=== PATIENT | male | born 1965 | race Caucasian/White ===

== ENCOUNTER → 2016-10-08 | Outpatient (CLI) | payer OTHER ==
[~2016-10-08] MED LIST: ASPI81TA28 PO; ATOR-26 PO; ATV/1 PO; CARV3.12 PO; CFT250 PO; CLOP1TAB15 PO; CRFL PO; FAMO20TA9 PO; FLV1 PO; LPT/40 PO; METO-217 PO; METO50TA16 PO; NRN/600 PO; NRV/5 PO; NTRGSL/4 UT; OMEG10007 PO; POLY335019 PO; POLY335040 PO; PRT40 PO; RAMI2.5C PO; SERT100T PO; THM100 PO; ZOLP5TAB PO
[2016-10-08 13:28] LABS: ALT/SGPT 44 U/L (12-78); AST/SGOT 22 U/L (15-37); BLOOD UREA NITROGEN 16 mg/dl (7-18); BUN/CREATININE RATIO 14.3 (10-20); CALCIUM 8.8 mg/dl (8.5-10.1); CARBON DIOXIDE 28 mmol/L (21-32); CHLORIDE 106 mmol/L (98-107); GLUCOSE 124 mg/dl (70-99); POTASSIUM 4.2 mmol/L (3.5-5.1); SODIUM 141 mmol/L (136-145)
[2016-10-08 13:31] LABS: CHOLESTEROL 151 mg/dl (0-200); CHOLESTEROL/HDL RATIO 2.8; HDL CHOLESTEROL 54 mg/dl; LDL CHOLESTEROL CALCULATED 68 mg/dl; TRIGLYCERIDES 147 mg/dl (0-150); VERY LOW DENSITY LIPOPROT CALC 29 mg/dl
== END | disposition home or self-care (01) ==
LOC: C.LABMFLN 08:33
PROVIDERS: ATTEND Family Medicine
DX: E78.5 Hyperlipidemia, unspecified (principal); I10 Essential (primary) hypertension; I25.10 Atherosclerotic heart disease of native coronary artery without angina pectoris; R73.03 Prediabetes

== ENCOUNTER 2017-02-20 08:20 | Observation (INO) | payer OTHER ==
[2017-02-20] VITALS (9 sets, daily range): BP systolic 127–162; BP diastolic 73–102; PULSE 67–75; TEMP 36.5–36.8; O2SAT 91–96; Ht 188 cm; Wt 116.6 kg
[~2017-02-20] VITALS: Ht 188 cm; Wt 116.6 kg
[~2017-02-20 08:20] MED LIST changes: -ASPI81TA28 PO; -ATOR-26 PO; -ATV/1 PO; -CFT250 PO; -CRFL PO; -FAMO20TA9 PO; -FLV1 PO; -METO-217 PO; -METO50TA16 PO; -NRV/5 PO; -NTRGSL/4 UT; -POLY335019 PO; -PRT40 PO; -RAMI2.5C PO; -SERT100T PO; -THM100 PO
[2017-02-20] MEDS ORDERED: POLY335019 PO (08:34)
--- NOTE | 2017-02-20 09:07 | DIAGNOSTIC IMAGING REPORT ---
SINGLE VIEW CHEST CLINICAL HISTORY: Atypical chest pain. FINDINGS: An AP, portable, upright chest radiograph is compared to study dated 12/27/2012. The examination is degraded by portable technique and patient rotation. The heart is top normal for projection. The pulmonary vasculature is noncongested. Scattered calcified granulomas are suggested. No airspace consolidation or pleural effusion is identified. No pneumothorax is seen. The bony thorax is grossly intact. IMPRESSION: No acute cardiopulmonary abnormality. Electronically signed by: Hunter Osorio M.D. 02/20/2017 9:06 AM Dictated Date/Time: 02/20/2017 9:04 AM
[2017-02-20] MEDS ORDERED: CFT250 PO (09:12)
[2017-02-20] MEDS ORDERED: METO50TA16 PO (09:12)
[2017-02-20] MEDS ORDERED: ATOR-26 PO (09:12)
[2017-02-20 09:14] LABS: BASO % 0.9 %; BASO ABS # 0.05 K/uL (0-0.2); COMPLETE YES; EOS % 7.2 %; HEMATOCRIT 41.3 % (42-52); IG% 0.2 %; LYMPH % 17.3 %; LYMPH ABS # 0.96 K/uL (1.2-3.4); MEAN CELL VOLUME 89.8 fL (80-100); MEAN CORPUSCULAR HEMOGLOBIN 31.5 pg (25-34); MEAN CORPUSCULAR HGB CONC 35.1 g/dl (32-36); MEAN PLATELET VOLUME 10.7 fL (7.4-10.4); MONO % 7.7 %; NEUT % 66.7 %; PLATELET COUNT 108 K/uL (130-400); WHITE BLOOD COUNT 5.56 K/uL (4.8-10.8)
[2017-02-20 09:20] LABS: BUN/CREATININE RATIO 20.2 (10-20); CALCIUM 8.3 mg/dl (8.5-10.1); CREATININE 1.1 mg/dl (0.60-1.40); PROTHROMBIN TIME (PATIENT) 11.1 SECONDS (9.0-12.0)
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
[2017-02-20] MEDS ORDERED: ENOXAPARIN 40 MG/0.4 ML SYR SC SCH (11:15)
[2017-02-20] MEDS ORDERED: ACETAMINOPHEN 325 MG TAB PO PRN (11:15)
[2017-02-20] MEDS ORDERED: NITROGLYCERIN 0.4 MG SL PER TAB CHARGE SL PRN (11:15)
[2017-02-20] MEDS ORDERED: NITROGLYCERIN 0.4 MG SL PER TAB CHARGE UT SCH (11:15)
[2017-02-20] MEDS ORDERED: ALUMINUM/MAGNESIUM/SIMETH (MAALOX MAX) 30 ML UDC PO PRN (11:15)
[2017-02-20] MEDS ORDERED: MAGNESIUM HYDROXIDE SUSP 30 ML UDC PO PRN (11:15)
[2017-02-20] MEDS ORDERED: NITROGLYCERIN OINT 2% 1GM PACKET EXT SCH (11:45)
[2017-02-20] MEDS ORDERED: HEPARIN 25000 UNIT/500 ML D5W ONE (12:02)
[2017-02-20] MEDS ORDERED: HEPARIN SOD 5000 UNIT/0.5 ML CARP ONE (12:03)
[2017-02-20] MEDS ORDERED: ALUMINUM/MAGNESIUM SUSP 30 ML UDC PO STA ×2 (12:04→17:15)
[2017-02-20] MEDS ORDERED: LIDOCAINE HCL 2% VISC SOLN 20 ML UDC PO ONE ×2 (12:15→17:30)
[2017-02-20] MEDS ORDERED: ASPI81TA28 PO (12:18)
[2017-02-20] MEDS ORDERED: IV FLUIDS COMPLETED PRN (12:45)
--- NOTE | 2017-02-20 13:12 | History and Physical ---
History & Physical Date of Service Feb 20, 2017. History & Physical obs #[id number]
[2017-02-20] MEDS: METOPROLOL TARTRATE 25 MG TAB PO SCH ×3 (13:29→20:48)
[2017-02-20] MEDS ORDERED: THIAMINE HCL 100 MG TAB PO STA (13:29)
[2017-02-20] MEDS ORDERED: LORAZEPAM 1 MG TAB PO PRN (13:30)
--- NOTE | 2017-02-20 13:49 | HISTORY & PHYSICAL EXAMINATION ---
DATE OF ADMISSION: 02/20/2017 CHIEF COMPLAINT: Chest pain. HISTORY OF PRESENT ILLNESS: The patient is a very pleasant 51-year-old male who woke up this morning about 6:30 with chest pain that is kind of a pressure, about 4/10, substernal, it goes up to his neck and most ominously he notes that it feels very similar to whenever he had an OR in 2003. He took 2 nitro with no relief. In the ambulance, he was given more nitro and it improved and now his pain is a 1/10, although interestingly right after lunch he noticed that it came back a little bit more and was back to about 3/10. He has had some diaphoresis as well. He has not had vomiting, diarrhea, cough, shortness of breath, presyncope or any other notable symptoms. He does have a little bit of rhinitis because he is being treated for sinusitis. REVIEW OF SYSTEMS: Otherwise negative, except for as above. PAST MEDICAL HISTORY: Includes coronary artery disease with stenting, I believe x4, impaired glucose tolerance, hypertension, hyperlipidemia, GERD. MEDICATIONS: As noted in EMR are recently cefuroxime for sinusitis, aspirin, amlodipine, atorvastatin, famotidine, lorazepam p.r.n. anxiety, metoprolol, nitroglycerin p.r.n. angina, MiraLax, ramipril and Zoloft. PAST SURGICAL HISTORY: Includes back surgeries and cath and stenting. SOCIAL HISTORY: He has about a 15-20 pack year smoking history. He has predominantly quit, however occasionally he will smoke whenever he is drinking. He does drink beer 3-4 times a week. Unfortunately, typically about 10 beers whenever he has any. FAMILY HISTORY: His dad had an OR at 42. Sister he believes an OR fairly young as well. ALLERGIES: No known drug allergies. PHYSICAL EXAMINATION: VITAL SIGNS: Temp 36.6, pulse 72, respiratory rate 17, blood pressure 141/77, 97% on room air. GENERAL: He is awake, alert, oriented x3, pleasant, in no acute distress. HEAD, EYES, EARS, NOSE, AND THROAT: Normocephalic, atraumatic. Mucous membranes are moist. CARDIOVASCULAR: Regular without rubs, murmurs, or gallops. LUNGS: Clear to auscultation bilaterally. No rales, rhonchi, or wheezes with good effort. ABDOMEN: Soft, nondistended. He does have epigastric tenderness that provokes a little bit of nausea and he is burping during the interview and exam to a degree. No guarding, no rebound, no rigidity. EXTREMITIES: Without cyanosis, clubbing or edema. No calf tenderness. SKIN: Shows no rashes, no pallor or icterus. He is mildly diaphoretic. NEUROLOGIC: Shows cranial nerves II through XII to be grossly intact. Gross motor and sensory are intact. MUSCULOSKELETAL EXAMINATION: Yields no gross gross lesions. MENTAL STATUS: Shows good recent and remote recall. Normal mood and affect. Good judgment and insight. LABORATORY AND DIAGNOSTICS: CBC shows a white count of 5.56, hemoglobin 14.5, platelets 108. Previously his platelets have been low to low normal. Complete metabolic panel with sodium 139, potassium 4, chloride 106, CO2 27, BUN 22, creatinine 1.1, calcium 8.3, glucose 114, total bilirubin 0.5 with a direct of 0.1, AST 27, ALT 46, alkaline phosphatase 106, troponin of less than 0.030. BNP of 11. Total protein 7.2, lipase 228. Hep C screen is negative. His PT is 11.1, PTT of 24.7. Chest x-ray shows no cardiopulmonary abnormality. His EKG is sinus rhythm. ASSESSMENT AND PLAN: 1. Chest pain. The main differential here being unstable angina versus GERD. Certainly his worsening after eating his burping and his epigastric tenderness favor GERD as do his normal EKG and normal first troponin. That said with his rather ominous cardiac history and the fact that he notes this feels almost exactly like his previous angina this needs to be managed as unstable angina until proven otherwise. In that respect we will have him on 2 liters of oxygen, start him on heparin drip, increase his beta effie. He is already on antiplatelets. Will consult cardiology to give consideration to cath. Certainly he does not show any indication for emergent cath, but should his symptoms fail to improve after the situation has been more clearly defined he may need follow-up cath especially given that he just had a negative stress test about 3 weeks ago. He will need morphine p.r.n., his MACIE inhibitor and nitrates p.r.n. He is already on a full dose statin. We will follow serial cardiac enzymes and certainly should he show any elevation of troponin or any EKG changes he will need to go to cath. If everything is negative and he improves with the GI cocktail (see below) then it would almost certainly be GERD related; however, if he does not improve with GI cocktail, but he has an ongoing negative troponin, negative EKG, that will be a little bit more difficult to discern and either would warrant cath or very close monitoring. 2. Indigestion or gastroesophageal reflux disease. He does appear to have indigestion and GERD. Right now he is burping, he has some epigastric tenderness. He does have a history of GERD given that he takes Pepcid routinely. Will give him Maalox and viscous lidocaine now to look for diagnostic/therapeutic trial. Continue his Pepcid and follow closely. 3. Recent sinusitis. Will finish out his Ceftin. 4. Known coronary disease. Continue his home meds with the escalations as above noted. 5. Hypertension. Continue his home meds depending on his degree of control, possibly at discharge we will need to increase his ramipril. 6. Alcohol abuse. Follow for any signs or symptoms of withdrawal. 7. Hyperlipidemia. Continue his atorvastatin. 8. Deep venous thrombosis prophylaxis. Currently will be anticoagulated on heparin drip.
[2017-02-20] MEDS: LORAZEPAM 1 MG TAB PO PRN (13:54)
[2017-02-20] MEDS ORDERED: NTRGSL/4 UT (14:51)
[2017-02-20] MEDS ORDERED: RAMI2.5C PO (14:51)
[2017-02-20] MEDS ORDERED: SERT100T PO (14:51)
[2017-02-20] MEDS ORDERED: FAMO20TA9 PO (14:51)
--- NOTE | 2017-02-20 15:48 | Cardiology Consultation ---
Cardiology Consultation Date of Consultation: Feb 20, 2017. Attending Physician: Jeffrey Hong MD Reason for Consultation: Concern for chest pain on unstable angina. Pt evaluation today including: conversation w/ patient, conversation w/ family , physical exam, chart review, lab review, review of studies Past Medical/Surgical History This note is by PG1 Tobacco Stripping Machine Operator. For official recommendation, please see attending Dr. Hal SYED addendum/attestation. Mr. Quiros is a 51 year old male admitted for chest pain. Reason for consultation is concern for chest pain on unstable angina. Mr. Quiros has a past medical history significant for angina and 2 stents placed in 2003, and 2 additional placed in 2004 or 2005. Pt did not have his stent card with him, but recalls that it was for his left anterior descending artery. Pt states that he woke up this morning around 6:30, ate his breakfast, and while driving on his way to work began to feel a pressure and burning in the midsternal chest. Pt denies the pain radiating anywhere, and says that he felt nausea and sweating when it happened. He said the pain comes and it goes, and isn't associated with position or exertion. When he first started feeling it, it was 1/10, but now in the hospital he says when it comes on it is 7/10. He says when he swallows his water or coke that it feels like a spasm "down there" but that he also feels the pain at other times as well. Pt denies vomiting, dyspnea, radiation, palpitations nor hemoptysis, cough, orthopnea, nor PND. Pt states that the Nitroglycerin he has been given has helped but that he doesn' t want to take anymore because of the headache he has with it. Pt states that the last time he had angina requiring stents, his presentation was atypical and that not until his 3rd cardiac enzyme did it show abnormality. is in room with pt and states that they just got back from vacation in the [place]. 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 FH is positive for pt's father passing away from a heart attack at age 42. Pt's mother had cardiac stents placed in her late 60s. Social History Smoking Status: Former Smoker History of Alcohol Use: Yes (8 beers every other day.) Review of Systems Constitutional: + see HPI Respiratory: No cough, No sputum, No shortness of breath Cardiac: + chest pain, No orthopnea, No PND, No edema, No claudication, No palpitations Abdomen: + nausea, No pain, No vomiting, No diarrhea, No constipation, No GI bleeding Male : No dysuria, No hematuria Allergies Coded Allergies: No Known Allergies (Unverified , 02/20/17) Medications Current Inpatient Medications Medications (Trade) Dose Ordered Sig/Wilfredo Route Start Time Stop Time Status Last Admin Dose Admin Acetaminophen (Tylenol Tab) 650 mg Q4H PRN PO 02/20/17 11:15 03/22/17 11:14 Al Hydrox/Mg Hydrox/Simethicone (Maalox Max Susp) 15 ml Q4H PRN PO 02/20/17 11:15 03/22/17 11:14 02/20/17 13:32 15 ML Magnesium Hydroxide (Milk Of Magnesia Susp) 30 ml Q12H PRN PO 02/20/17 11:15 03/22/17 11:14 Ondansetron HCl (Zofran Inj) 4 mg Q6H PRN IV 02/20/17 11:15 03/22/17 11:14 Amlodipine Besylate (Norvasc Tab) 5 mg DAILY PO 02/21/17 09:00 03/23/17 08:59 Aspirin (Ecotrin Tab) 81 mg QPM PO 02/20/17 21:00 03/22/17 20:59 Atorvastatin Calcium (Lipitor Tab) 80 mg DAILY PO 02/21/17 09:00 03/23/17 08:59 Cefuroxime Axetil (Ceftin Tab) 250 mg BID PO 02/20/17 21:00 02/22/17 20:59 Famotidine (Pepcid Tab) 20 mg BID PO 02/20/17 21:00 03/22/17 20:59 Lorazepam (Ativan Tab) 1 mg Q6H PRN PO 02/20/17 11:15 03/22/17 11:14 02/20/17 13:54 1 MG Nitroglycerin (Nitrostat Tab) 0.4 mg PRN UT 02/20/17 11:15 03/22/17 11:14 Sertraline HCl (Zoloft Tab) 200 mg DAILY PO 02/21/17 09:00 03/23/17 08:59 Polyethylene (Miralax Powder Packet) 17 gm DAILY PO 02/21/17 09:00 03/23/17 08:59 Enalapril Maleate (Vasotec Tab) 10 mg QPM PO 02/20/17 21:00 03/22/17 20:59 Metoprolol Tartrate (Lopressor Tab) 12.5 mg QID PO 02/20/17 13:00 03/23/17 08:59 02/20/17 13:29 12.5 MG Morphine Sulfate (MoRPHine SULFATE INJ) 2 mg Q30M PRN IV 02/20/17 12:00 03/06/17 11:59 Miscellaneous (Iv Fluids Completed) 1 ea PRN PRN N/A 02/20/17 12:45 02/20/18 12:44 Heparin Sodium/ Dextrose 500 ml @ 34 mls/hr [id number] PRN IV 02/20/17 13:15 03/22/17 13:14 Lorazepam (Ativan Tab) 1 mg ONE PRN PO 02/20/17 13:30 Folic Acid (Folvite Tab) 1 mg QAM PO 02/21/17 09:00 03/23/17 08:59 Thiamine HCl (Vitamin B-1 Tab) 100 mg DAILY PO 02/21/17 09:00 03/23/17 08:59 Nitroglycerin (Nitroglycerin 2% Oint) 0.5 inch Q6H EXT 02/20/17 16:00 03/22/17 15:59 Physical Exam Vital Signs Past 12 Hours Date Time Temp Pulse Resp B/P (MAP) Pulse Ox O2 Delivery O2 Flow Rate FiO2 02/20/17 14:24 73 16 127/73 (91) 93 Room Air 02/20/17 13:04 94 Room Air 02/20/17 12:58 36.5 75 16 153/84 (107) 94 02/20/17 12:25 71 12 138/85 98 Room Air 02/20/17 11:40 70 18 145/102 97 Room Air 02/20/17 10:13 96 Room Air 02/20/17 09:43 95 Room Air 02/20/17 09:43 96 Room Air 02/20/17 09:43 71 20 139/84 96 Room Air 02/20/17 08:43 78 02/20/17 08:26 36.6 72 17 141/77 96 Room Air 02/20/17 08:26 97 Room Air Constitutional: General Apperance: heathly-appearing, well-nourished, overweight Level of Distress: mild distress Head: normocephalic, atraumatic Lungs: Respiratory effort: no dyspnea, good air movement Auscultation: breath sounds normal, no wheezing, no rales/crackles, no rhonchi, pertinent finding (+pain on palpation to midsternum and xiphoid process.) Cardiovascular: Apical Impulse: not displaced Heart Auscultation: RRR, no murmurs, no rubs, no gallops Peripheral Pulses: Bruits: none appreciated Carotid Pulse: normal on the left, normal on the right Radial Pulse: normal on the left, normal on the right Dorsalis Pedis Pulse: normal on the left, normal on the right Abdomen: Bowel Sounds: normal Inspection & Palpation: soft, non-distended, no tenderness, guarding & rebound, no CVA tenderness, pertinent finding (+pain on palpation to midsternum and xiphoid process; pain when sitting up. ) Liver: non-tender Extremities: no cyanosis, no edema, no varicosities Neurologic: Cranial Nerves: grossly intact Sensation: grossly intact Data Laboratory Results: Last 24 Hours Test 02/20/17 08:40 02/20/17 08:44 02/20/17 08:53 Hepatitis C Antibody Screen NEG White Blood Count 5.56 K/uL Red Blood Count 4.60 M/uL Hemoglobin 14.5 g/dL Hematocrit 41.3 % Mean Corpuscular Volume 89.8 fL Mean Corpuscular Hemoglobin 31.5 pg Mean Corpuscular Hemoglobin Concent 35.1 g/dl Platelet Count 108 K/uL Mean Platelet Volume 10.7 fL Neutrophils (%) (Auto) 66.7 % Lymphocytes (%) (Auto) 17.3 % Monocytes (%) (Auto) 7.7 % Eosinophils (%) (Auto) 7.2 % Basophils (%) (Auto) 0.9 % Neutrophils # (Auto) 3.71 K/uL Lymphocytes # (Auto) 0.96 K/uL Monocytes # (Auto) 0.43 K/uL Eosinophils # (Auto) 0.40 K/uL Basophils # (Auto) 0.05 K/uL RDW Standard Deviation 42.9 fL RDW Coefficient of Variation 13.1 % Immature Granulocyte % (Auto) 0.2 % Immature Granulocyte # (Auto) 0.01 K/uL Prothrombin Time 11.1 SECONDS Prothromb Time International Ratio 1.0 Activated Partial Thromboplast Time 24.7 SECONDS Partial Thromboplastin Ratio 1.0 Sodium Level 139 mmol/L Potassium Level 4.0 mmol/L Chloride Level 106 mmol/L Carbon Dioxide Level 27 mmol/L Anion Gap 6.0 mmol/L Blood Urea Nitrogen 22 mg/dl Creatinine 1.10 mg/dl Est Creatinine Clear Calc Drug Dose 106.3 ml/min Estimated GFR () 89.0 Estimated GFR (Non- 76.8 BUN/Creatinine Ratio 20.2 Random Glucose 114 mg/dl Calcium Level 8.3 mg/dl Total Bilirubin 0.5 mg/dl Direct Bilirubin 0.1 mg/dl Aspartate Amino Transf (AST/SGOT) 27 U/L Alanine Aminotransferase (ALT/SGPT) 46 U/L Alkaline Phosphatase 106 U/L Pro-B-Type Natriuretic Peptide 11 pg/ml Total Protein 7.2 gm/dl Albumin 3.7 gm/dl Lipase 228 U/L Bedside Troponin I < 0.030 ng/ml Imaging: EKG: Telemetry reviewed: Assessment & Plan This note is by PG1 Tobacco Stripping Machine Operator. For official recommendation, please see attending Dr. Hal SYED addendum/attestation. Mr. Quiros is a 51 year old male admitted for chest pain. Reason for consultation is concern for chest pain on unstable angina. Mr. Quiros has a past medical history significant for angina and 2 stents placed in 2003, and 2 additional placed in 2004 or 2005. Pt did not have his stent card with him, but recalls that it was for his left anterior descending artery. Pt states that he woke up this morning around 6:30, ate his breakfast, and while driving on his way to work began to feel a pressure and burning in the midsternal chest. Pt denies the pain radiating anywhere, and says that he felt nausea and sweating when it happened. He said the pain comes and it goes, and isn't associated with position or exertion. When he first started feeling it, it was 1/10, but now in the hospital he says when it comes on it is 7/10. He says when he swallows his water or coke that it feels like a spasm "down there" but that he also feels the pain at other times as well. Pt denies vomiting, dyspnea, radiation, palpitations nor hemoptysis, cough, orthopnea, nor PND. 1. Chest pain - low likelihood of cardiac cause due to evidence of ECG x 2 normal, troponin x 2 normal, tenderness to palpation at sternum and xiphoid process and pain with position, and a normal stress test (2 weeks ago). Pain may have GI component, GERD or musculoskeletal cause. Continue to observe overnight and if no symptoms in the morning, and normal ECG and 3rd troponin enzyme, will be safe to go home. This note is by PG1 Tobacco Stripping Machine Operator. For official recommendation, please see attending Dr. Hal SYED addendum/attestation. Dr. Hong Addendum: Patient seen and examined and discussed with resident. Agree with assessment as outlined by Dr. Schwartz. Briefly, Mr. Quiros is a 51-year-old man with a history of coronary artery disease status post prior anterior VA and multiple prior stents to his LAD, last 2005 who was admitted in the setting new onset chest pain this a.m.. Patient has previously been seen by [facility] cardiology and most recently underwent an exercise stress echocardiogram earlier this month on which he achieved 10 Mets and had no significant evidence of ischemia. Today he had acute onset chest pressure with associated shortness of breath, diaphoresis which he states was similar to symptoms he had previously with his VA. He has had near constant chest pain since approximately 730 this morning. He also endorses that symptoms are in part worsened by eating and earlier today were reproduced with palpation. Since admission he has been hemodynamically and electrically stable. His EKG is completely normal and troponins have been negative x2. He is well perfused without significant congestion on exam. As no signs of ischemia on EKG or by cardiac enzymes after more than 6 hours of chest pain suspicion that current pain is related to an acute coronary syndrome is relatively low. Suspicion for stable underlying high risk disease in the setting recent normal exercise stress test also lower. However, patient does note that on prior presentations had similar symptoms to today with initial workup that have been unremarkable. In that setting agree with continued observation on telemetry. Continue to trend cardiac enzymes overnight. Can repeat limited echocardiogram in the a.m. for wall motion. Assuming telemetry, enzymes, EKG and echo findings unremarkable feel that could be safely discharged home tomorrow. If new findings, or if severe persistent pain causing significant anxiety to patient and family will consider cardiac catheterization on Thursday. Resident Tracking Resident Involvement: Resident Care Provided Care Provided: Adult [facility]
[2017-02-20] MEDS: NITROGLYCERIN OINT 2% 1GM PACKET EXT SCH ×2 (15:50→22:06)
[2017-02-20] MEDS: MoRPHine SULFATE 2 MG/ML CARP IV PRN ×3 (15:56→23:36)
[2017-02-20] MEDS ORDERED: NURSING VERBAL MED ORDER ONE (17:15)
[2017-02-20 18:12] LABS: PARTIAL THROMBOPLASTIN RATIO 2.9
[2017-02-20 18:23] LABS: CKMB/CK RATIO 0.8 (0-3.0)
[2017-02-20] MEDS: HEPARIN 25,000 UNIT/500ML D5W 500 ML IV PRN (18:27)
[2017-02-20] MEDS: ASPIRIN 81 MG ECTAB PO SCH (20:48)
[2017-02-20] MEDS: CEFUROXIME AXETIL 250 MG TAB PO SCH (20:48)
[2017-02-20] MEDS: ENALAPRIL MALEATE 10 MG TAB PO SCH (20:48)
[2017-02-20] MEDS ORDERED: FAMOTIDINE 20 MG TAB PO SCH (21:00)
[2017-02-20] MEDS ORDERED: NRV/5 PO (23:15)
[2017-02-20] MEDS ORDERED: ATV/1 PO (23:26)
[2017-02-21] VITALS (8 sets, daily range): BP systolic 127–164; BP diastolic 77–97; PULSE 67–85; TEMP 36.5–37.1; O2SAT 92–96
[2017-02-21] MEDS ORDERED: GI COCKTAIL PO STA (00:36)
[2017-02-21] MEDS ORDERED: ALUMINUM/MAGNESIUM SUSP 18 ML, LIDOCAINE HCL 2% VISCOUS SOLN 6 ML, BARCODE IDENTIFIER 1 EA PO STA ×2 (00:41)
[2017-02-21] MEDS ORDERED: OPTIRAY 320 IV PRN (00:45)
[2017-02-21 00:48] LABS: BASO % 0.5 %; BASO ABS # 0.04 K/uL (0-0.2); EOS % 6.7 %; HEMATOCRIT 40.2 % (42-52); IG% 0.3 %; LYMPH % 23.2 %; LYMPH ABS # 1.74 K/uL (1.2-3.4); MEAN CELL VOLUME 89.7 fL (80-100); MEAN CORPUSCULAR HEMOGLOBIN 31.5 pg (25-34); MEAN PLATELET VOLUME 10.3 fL (7.4-10.4); MONO % 6.8 %; NEUT % 62.5 %; PLATELET COUNT 113 K/uL (130-400); RED BLOOD COUNT 4.48 M/uL (4.7-6.1); WHITE BLOOD COUNT 7.49 K/uL (4.8-10.8)
[2017-02-21 01:00] LABS: COMPLETE YES; MEAN CORPUSCULAR HGB CONC 35.1 g/dl (32-36)
[2017-02-21] MEDS ORDERED: NURSING VERBAL MED ORDER ONE ×2 (01:00→02:15)
[2017-02-21 01:06] LABS: BLOOD UREA NITROGEN 18 mg/dl (7-18); BUN/CREATININE RATIO 14.7 (10-20); CALCIUM 8.2 mg/dl (8.5-10.1); CARBON DIOXIDE 25 mmol/L (21-32); CHLORIDE 104 mmol/L (98-107); GLUCOSE 138 mg/dl (70-99); POTASSIUM 3.8 mmol/L (3.5-5.1); SODIUM 138 mmol/L (136-145)
[2017-02-21 01:08] LABS: PARTIAL THROMBOPLASTIN RATIO 2.1
[2017-02-21 01:11] LABS: CHOLESTEROL 171 mg/dl (0-200); CHOLESTEROL/HDL RATIO 2.6; CKMB/CK RATIO 1.3 (0-3.0); HDL CHOLESTEROL 66 mg/dl; LDL CHOLESTEROL CALCULATED 66 mg/dl; TRIGLYCERIDES 194 mg/dl (0-150); VERY LOW DENSITY LIPOPROT CALC 39 mg/dl
[2017-02-21] MEDS: MoRPHine SULFATE 2 MG/ML CARP IV PRN ×6 (01:14→23:34)
[2017-02-21] MEDS: ONDANSETRON INJ 2 MG/ML 2 ML VIAL IV PRN ×2 (01:20→09:17)
[2017-02-21] MEDS ORDERED: HydrALAZINE HCL 20 MG/ML VIAL IV. STA (02:02)
[2017-02-21] MEDS ORDERED: HydrALAZINE HCL 20 MG/ML VIAL IV. PRN (02:15)
[2017-02-21] MEDS: NITROGLYCERIN OINT 2% 1GM PACKET EXT SCH ×4 (04:13→22:31)
[2017-02-21] MEDS: HEPARIN 25,000 UNIT/500ML D5W 500 ML IV PRN ×2 (04:36→17:50)
--- NOTE | 2017-02-21 05:20 | DIAGNOSTIC IMAGING REPORT ---
CHEST ONE VIEW PORTABLE CLINICAL HISTORY: 51 years-old Male presenting with chest pain. TECHNIQUE: Portable upright AP view of the chest was obtained. COMPARISON: 02/20/2017. FINDINGS: Cardiomediastinal silhouette normal. Mildly low lung volumes with hypoventilatory changes. No focal infiltrate. No large effusion or pneumothorax. Osseous structures normal. Upper abdomen normal. IMPRESSION: 1. No acute cardiopulmonary disease. Electronically signed by: Gautam Valera M.D. 02/21/2017 5:19 AM Dictated Date/Time: 02/21/2017 5:18 AM
[2017-02-21] MEDS: RANITIDINE IV 50 MG in DEXTROSE 5% 100ML 100 ML IV SCH ×3 (06:46→22:30)
--- NOTE | 2017-02-21 07:02 | DIAGNOSTIC IMAGING REPORT ---
CHEST COMBO ANGIOGRAPHY CLINICAL HISTORY: 51 years-old Male presenting with chest pain, back pain, concern for dissection. TECHNIQUE: Multidetector CT angiography of the chest was performed after the administration of intravenous contrast. 3-D volumetric and/or maximum intensity projection (MIP) images were subsequently reconstructed for review. IV contrast: 119 mL of Optiray 320. A dose lowering technique was used consistent with the principles of ALARA (as low as reasonably achievable). COMPARISON: None. CT DOSE (mGy.cm): The estimated cumulative dose is 1237.92 mGy.cm. FINDINGS: Field Care Coordinator topogram: Unremarkable. Initial noncontrast imaging demonstrates no evidence of hyperattenuation of the aortic wall. Postcontrast imaging demonstrates normal caliber thoracic aorta without evidence of dissection, aneurysm, or penetrating ulcer. No significant atherosclerotic disease burden. Central pulmonary arteries patent. Normal thyroid and thoracic inlet. No lymphadenopathy. Normal heart size. Coronary artery calcification. No pericardial or pleural effusion. Parenchymal atrophy of the pancreas noted in the upper abdomen. Dependent opacities at the lung bases, likely atelectasis or scarring. Airways patent. Osseous structures normal. IMPRESSION: 1. No evidence of acute aortic injury. No significant atherosclerosis. 2. No central pulmonary embolus. 3. Dependent atelectasis or scarring. No other acute intrathoracic pathology. Electronically signed by: Gautam Valera M.D. 02/21/2017 7:01 AM Dictated Date/Time: 02/21/2017 6:57 AM
--- NOTE | 2017-02-21 07:13 | DIAGNOSTIC IMAGING REPORT ---
ANGIO ABD/PELVIS WITH CONTRAST CLINICAL HISTORY: 51 years-old Male presenting with chest pain, back pain, epigastric pain, concern for dissection. TECHNIQUE: Multidetector CT of the abdomen and pelvis was performed after the administration of intravenous contrast. IV contrast: 93 mL of Optiray 320. A dose lowering technique was used consistent with the principles of ALARA (as low as reasonably achievable). COMPARISON: None. CT DOSE (mGy.cm): The estimated cumulative dose is 843.58 mGy.cm. FINDINGS: Algology Teacher topogram: Posterior lumbar fusion hardware noted. Opacification of the urinary bladder. Mild atherosclerosis of the abdominal aorta, which is normal in course and caliber. Major branch vessels patent. No evidence of dissection, aneurysm, or occlusion. Minimal dependent changes in the lungs likely atelectasis. Mild parenchymal atrophy of the pancreas. Remaining hollow and solid viscera normal. No lymphadenopathy. No free fluid or gas. Bilateral transpedicular screw and priyank fixation of L3-L5. No acute osseous injury. IMPRESSION: 1. No acute aortic injury. No acute intra-abdominal pathology. Electronically signed by: Gautam Valera M.D. 02/21/2017 7:11 AM Dictated Date/Time: 02/21/2017 7:07 AM
[2017-02-21] MEDS: ATORVASTATIN 40 MG TAB PO SCH (07:53)
[2017-02-21] MEDS: SERTRALINE HCL 100 MG TAB PO SCH (07:53)
[2017-02-21] MEDS: METOPROLOL TARTRATE 25 MG TAB PO SCH ×4 (07:53→21:10)
[2017-02-21] MEDS: CEFUROXIME AXETIL 250 MG TAB PO SCH ×2 (07:53→21:11)
[2017-02-21] MEDS: POLYETHYLENE (MIRALAX) 17 GM PACK PO SCH (07:54)
[2017-02-21] MEDS: THIAMINE HCL 100 MG TAB PO SCH (07:55)
[2017-02-21] MEDS: PANTOprazole SOD 40 MG TAB PO SCH ×2 (08:54→21:11)
[2017-02-21] MEDS ORDERED: AMLODIPINE BESYLATE 5 MG TAB PO SCH (09:00)
[2017-02-21] MEDS ORDERED: ASPIRIN 81 MG ECTAB PO SCH (09:00)
[2017-02-21] MEDS ORDERED: METOPROLOL TARTRATE 50 MG TAB PO SCH (09:00)
[2017-02-21] MEDS: LORAZEPAM 1 MG TAB PO PRN ×2 (09:17→21:09)
[2017-02-21 09:25] LABS: PARTIAL THROMBOPLASTIN RATIO 1.8
[2017-02-21] MEDS ORDERED: HEPARIN IV BOLUS 4,000 UNIT in SYRINGE 0 ML IV ONE (10:15)
--- NOTE | 2017-02-21 10:29 | Cardiology Follow-Up ---
Subjective Subjective Date of Service: Feb 21, 2017. Pt evaluation today including: conversation w/ patient, conversation w/ family , physical exam, chart review, lab review, review of studies, conversation w/ portrait consultant, review of inpatient medication list Additional Details: Still with intermittent chest pain, relieved with morphine. CTA negative. Tele reviewed -- no events. Review of Systems Constitutional: + see HPI Respiratory: No cough, No sputum, No shortness of breath Cardiac: + chest pain, No orthopnea, No PND, No edema, No claudication, No palpitations Abdomen: + nausea, No pain, No vomiting, No diarrhea, No constipation, No GI bleeding Male : No dysuria, No hematuria Objective Vital Signs Last Vital Signs Documentation Date Time Temp Pulse Resp B/P (MAP) Pulse Ox O2 Delivery O2 Flow Rate FiO2 02/21/17 08:00 Room Air 02/21/17 07:50 36.6 67 18 152/92 (112) 96 2.0 Physical Exam: General Appearance: no apparent distress Neck: no JVD Respiratory/Chest: chest non-tender, lungs clear Cardiovascular: regular rate, rhythm, no edema, no murmur Abdomen: non tender, soft Extremities: no pedal edema, no calf tenderness, normal capillary refill Neurologic/Psychiatric: alert, normal mood/affect Skin: normal color, warm/dry Assessment and Plan 1. Atypical chest pain 2. CAD s/p prior anterior AR, multiple stents to LAD 3. Hypertension 4. Dyslipidemia 5. GERD 6. Thrombocytopenia ECG/troponin's remain negative. Continues to have significant pain. Patient and family very concerned that has had similar presentations in the past in the setting of severe CAD. With history feel that risk of high-risk disease is elevated and reasonable to proceed with cardiac catheterization. Plan for LHC on thursday via right radial artery. OK to continue heparin Continue ASA/statin/Beta-effie Monitor platelets Medications: Current Inpatient Medications Medications (Trade) Dose Ordered Sig/Wilfredo Route Start Time Stop Time Status Last Admin Dose Admin Acetaminophen (Tylenol Tab) 650 mg Q4H PRN PO 02/20/17 11:15 03/22/17 11:14 Al Hydrox/Mg Hydrox/Simethicone (Maalox Max Susp) 15 ml Q4H PRN PO 02/20/17 11:15 03/22/17 11:14 02/20/17 13:32 15 ML Magnesium Hydroxide (Milk Of Magnesia Susp) 30 ml Q12H PRN PO 02/20/17 11:15 03/22/17 11:14 Ondansetron HCl (Zofran Inj) 4 mg Q6H PRN IV 02/20/17 11:15 03/22/17 11:14 02/21/17 09:17 4 MG Amlodipine Besylate (Norvasc Tab) 5 mg DAILY PO 02/21/17 09:00 03/23/17 08:59 02/21/17 07:54 5 MG Aspirin (Ecotrin Tab) 81 mg QPM PO 02/20/17 21:00 03/22/17 20:59 02/20/17 20:48 81 MG Atorvastatin Calcium (Lipitor Tab) 80 mg DAILY PO 02/21/17 09:00 03/23/17 08:59 02/21/17 07:53 80 MG Cefuroxime Axetil (Ceftin Tab) 250 mg BID PO 02/20/17 21:00 02/22/17 20:59 02/21/17 07:53 250 MG Lorazepam (Ativan Tab) 1 mg Q6H PRN PO 02/20/17 11:15 03/22/17 11:14 02/21/17 09:17 1 MG Nitroglycerin (Nitrostat Tab) 0.4 mg PRN UT 02/20/17 11:15 03/22/17 11:14 Sertraline HCl (Zoloft Tab) 200 mg DAILY PO 02/21/17 09:00 03/23/17 08:59 02/21/17 07:53 200 MG Polyethylene (Miralax Powder Packet) 17 gm DAILY PO 02/21/17 09:00 03/23/17 08:59 Enalapril Maleate (Vasotec Tab) 10 mg QPM PO 02/20/17 21:00 03/22/17 20:59 02/20/17 20:48 10 MG Metoprolol Tartrate (Lopressor Tab) 12.5 mg QID PO 02/20/17 13:00 03/23/17 08:59 02/21/17 07:53 12.5 MG Morphine Sulfate (MoRPHine SULFATE INJ) 2 mg Q30M PRN IV 02/20/17 12:00 03/06/17 11:59 02/21/17 07:52 2 MG Miscellaneous (Iv Fluids Completed) 1 ea PRN PRN N/A 02/20/17 12:45 02/20/18 12:44 Heparin Sodium/ Dextrose 500 ml @ 36 mls/hr [id number] PRN IV 02/20/17 13:15 03/22/17 13:14 02/21/17 04:36 32 MLS/HR Lorazepam (Ativan Tab) 1 mg ONE PRN PO 02/20/17 13:30 Folic Acid (Folvite Tab) 1 mg QAM PO 02/21/17 09:00 03/23/17 08:59 02/21/17 07:53 1 MG Thiamine HCl (Vitamin B-1 Tab) 100 mg DAILY PO 02/21/17 09:00 03/23/17 08:59 02/21/17 07:55 100 MG Nitroglycerin (Nitroglycerin 2% Oint) 0.5 inch Q6H EXT 02/20/17 16:00 03/22/17 15:59 02/21/17 09:17 0.5 INCH Ioversol (Optiray 320) 100 ml UD PRN IV 02/21/17 00:45 02/25/17 00:44 Hydralazine HCl (HydrALAZINE INJ) 10 mg Q4H PRN IV. 02/21/17 02:15 03/23/17 02:14 Ranitidine HCl 50 mg/Dextrose 102 ml @ 200 mls/hr Q8H IV 02/21/17 06:30 03/23/17 06:29 02/21/17 06:46 200 MLS/HR Pantoprazole Sodium (Protonix Tab) 40 mg BID PO 02/21/17 09:00 03/23/17 08:59 02/21/17 08:54 40 MG Lab Results: 02/21/17 00:40 Red Blood Count 4.48, Mean Corpuscular Volume 89.7, Mean Corpuscular Hemoglobin 31.5, Mean Corpuscular Hemoglobin Concent 35.1, Mean Platelet Volume 10.3, Neutrophils (%) (Auto) 62.5, Lymphocytes (%) (Auto) 23.2, Monocytes (%) (Auto) 6.8, Eosinophils (%) (Auto) 6.7, Basophils (%) (Auto) 0.5, Neutrophils # (Auto) 4.68, Lymphocytes # (Auto) 1.74, Monocytes # (Auto) 0.51, Eosinophils # (Auto) 0.50, Basophils # (Auto) 0.04 02/21/17 00:35 Test 02/21/17 00:35 02/21/17 00:40 02/21/17 08:18 Anion Gap 9.0 mmol/L (3-11) Est Creatinine Clear Calc Drug Dose 97.4 ml/min Estimated GFR () 80.1 Estimated GFR (Non- 69.1 BUN/Creatinine Ratio 14.7 (10-20) Calcium Level 8.2 mg/dl (8.5-10.1) Total Creatine Kinase 79 U/L (39-308) Creatine Kinase MB 1.0 ng/ml (0.5-3.6) Creatine Kinase MB Ratio 1.3 (0-3.0) Triglycerides Level 194 mg/dl (0-150) Cholesterol Level 171 mg/dl (0-200) HDL Cholesterol 66 mg/dl LDL Cholesterol, Calculated 66 mg/dl VLDL Cholesterol, Calculated 39 mg/dl Cholesterol/HDL Ratio 2.6 White Blood Count 7.49 K/uL (4.8-10.8) Red Blood Count 4.48 M/uL (4.7-6.1) Hemoglobin 14.1 g/dL (14.0-18.0) Hematocrit 40.2 % (42-52) Mean Corpuscular Volume 89.7 fL (80-100) Mean Corpuscular Hemoglobin 31.5 pg (25-34) Mean Corpuscular Hemoglobin Concent 35.1 g/dl (32-36) Platelet Count 113 K/uL (130-400) Mean Platelet Volume 10.3 fL (7.4-10.4) Neutrophils (%) (Auto) 62.5 % Lymphocytes (%) (Auto) 23.2 % Monocytes (%) (Auto) 6.8 % Eosinophils (%) (Auto) 6.7 % Basophils (%) (Auto) 0.5 % Neutrophils # (Auto) 4.68 K/uL (1.4-6.5) Lymphocytes # (Auto) 1.74 K/uL (1.2-3.4) Monocytes # (Auto) 0.51 K/uL (0.11-0.59) Eosinophils # (Auto) 0.50 K/uL (0-0.5) Basophils # (Auto) 0.04 K/uL (0-0.2) RDW Standard Deviation 42.6 fL (36.4-46.3) RDW Coefficient of Variation 13.1 % (11.5-14.5) Immature Granulocyte % (Auto) 0.3 % Immature Granulocyte # (Auto) 0.02 K/uL (0.00-0.02) Activated Partial Thromboplast Time 46.8 SECONDS (21.0-31.0) Partial Thromboplastin Ratio 1.8 Troponin I < 0.015 ng/ml (0-0.045) Lipase 191 U/L (73-393)
--- NOTE | 2017-02-21 11:17 | Family Medicine Progress Note ---
Progress Note Date of Service Feb 21, 2017. Subjective Pt evaluation today including: conversation w/ patient, physical exam, chart review, lab review, review of studies, review of inpatient medication list Pain: denies PO Intake: NPO Voiding: no voiding problems Patient continues to report epigastric pain currently and throughout the night . He also reports some nausea, SOB on exertion, Morning EKG was unremarkable. Constitutional: No fever, No chills, No weakness Respiratory: No cough, No shortness of breath Cardiovascular: No chest pain, No edema, No palpitations Abdomen: No pain, No nausea, No vomiting Male : No dysuria, No urinary frequency Skin: No rash, No itch Medications Current Inpatient Medications Medications (Trade) Dose Ordered Sig/Wilfredo Route Start Time Stop Time Status Last Admin Dose Admin Acetaminophen (Tylenol Tab) 650 mg Q4H PRN PO 02/20/17 11:15 03/22/17 11:14 Al Hydrox/Mg Hydrox/Simethicone (Maalox Max Susp) 15 ml Q4H PRN PO 02/20/17 11:15 03/22/17 11:14 02/20/17 13:32 15 ML Magnesium Hydroxide (Milk Of Magnesia Susp) 30 ml Q12H PRN PO 02/20/17 11:15 03/22/17 11:14 Ondansetron HCl (Zofran Inj) 4 mg Q6H PRN IV 02/20/17 11:15 03/22/17 11:14 02/21/17 09:17 4 MG Amlodipine Besylate (Norvasc Tab) 5 mg DAILY PO 02/21/17 09:00 03/23/17 08:59 02/21/17 07:54 5 MG Aspirin (Ecotrin Tab) 81 mg QPM PO 02/20/17 21:00 03/22/17 20:59 02/20/17 20:48 81 MG Atorvastatin Calcium (Lipitor Tab) 80 mg DAILY PO 02/21/17 09:00 03/23/17 08:59 02/21/17 07:53 80 MG Cefuroxime Axetil (Ceftin Tab) 250 mg BID PO 02/20/17 21:00 02/22/17 20:59 02/21/17 07:53 250 MG Lorazepam (Ativan Tab) 1 mg Q6H PRN PO 02/20/17 11:15 03/22/17 11:14 02/21/17 09:17 1 MG Nitroglycerin (Nitrostat Tab) 0.4 mg PRN UT 02/20/17 11:15 03/22/17 11:14 Sertraline HCl (Zoloft Tab) 200 mg DAILY PO 02/21/17 09:00 03/23/17 08:59 02/21/17 07:53 200 MG Polyethylene (Miralax Powder Packet) 17 gm DAILY PO 02/21/17 09:00 03/23/17 08:59 Enalapril Maleate (Vasotec Tab) 10 mg QPM PO 02/20/17 21:00 03/22/17 20:59 02/20/17 20:48 10 MG Metoprolol Tartrate (Lopressor Tab) 12.5 mg QID PO 02/20/17 13:00 03/23/17 08:59 02/21/17 12:32 12.5 MG Morphine Sulfate (MoRPHine SULFATE INJ) 2 mg Q30M PRN IV 02/20/17 12:00 03/06/17 11:59 02/21/17 07:52 2 MG Miscellaneous (Iv Fluids Completed) 1 ea PRN PRN N/A 02/20/17 12:45 02/20/18 12:44 Heparin Sodium/ Dextrose 500 ml @ 36 mls/hr [id number] PRN IV 02/20/17 13:15 03/22/17 13:14 02/21/17 04:36 32 MLS/HR Lorazepam (Ativan Tab) 1 mg ONE PRN PO 02/20/17 13:30 Folic Acid (Folvite Tab) 1 mg QAM PO 02/21/17 09:00 03/23/17 08:59 02/21/17 07:53 1 MG Thiamine HCl (Vitamin B-1 Tab) 100 mg DAILY PO 02/21/17 09:00 03/23/17 08:59 02/21/17 07:55 100 MG Nitroglycerin (Nitroglycerin 2% Oint) 0.5 inch Q6H EXT 02/20/17 16:00 03/22/17 15:59 02/21/17 09:17 0.5 INCH Ioversol (Optiray 320) 100 ml UD PRN IV 02/21/17 00:45 02/25/17 00:44 Hydralazine HCl (HydrALAZINE INJ) 10 mg Q4H PRN IV. 02/21/17 02:15 03/23/17 02:14 Ranitidine HCl 50 mg/Dextrose 102 ml @ 200 mls/hr Q8H IV 02/21/17 06:30 03/23/17 06:29 02/21/17 14:05 200 MLS/HR Pantoprazole Sodium (Protonix Tab) 40 mg BID PO 02/21/17 09:00 03/23/17 08:59 02/21/17 08:54 40 MG Objective Vital Signs Date Time Temp Pulse Resp B/P (MAP) Pulse Ox O2 Delivery O2 Flow Rate FiO2 02/21/17 15:00 37.1 76 20 127/77 (94) 92 2.0 02/21/17 12:00 Room Air 02/21/17 11:26 37.1 85 16 153/86 (108) 94 02/21/17 08:00 Room Air 02/21/17 07:50 36.6 67 18 152/92 (112) 96 2.0 02/21/17 04:00 Room Air 02/21/17 04:00 36.6 67 16 149/94 (112) 95 Nasal Cannula 2.0 02/21/17 02:03 136/86 (103) Room Air 02/21/17 00:27 36.9 71 20 162/96 (118) 94 Room Air 160/97 (118) 02/21/17 00:00 Room Air 02/20/17 23:23 36.8 71 20 146/84 (104) 91 Room Air 02/20/17 20:46 69 142/74 (96) 02/20/17 20:00 Room Air 02/20/17 19:26 36.6 75 17 92 Room Air Physical Exam Notes: GENERAL: alert, mild distress EYE EXAM: normal conjunctiva, PERRL and EOM's grossly intact NECK: supple, no nuchal rigidity, no adenopathy, non-tender LUNGS: Clear to auscultation. Normal chest wall mechanics HEART: no murmurs, S1 normal and S2 normal ABDOMEN: abdomen soft, non-tender, normo-active bowel sounds, no masses, no rebound or guarding. SKIN: no rashes and no bruising UPPER EXTREMITIES: upper extremities are grossly normal. LOWER EXTREMITIES: No pitting edema. NEURO EXAM: Normal sensorium, cranial nerves II-XII grossly intact, normal speech, no gross weakness of arms, no gross weakness of legs. Laboratory Results Results Past 24 Hours Test 02/20/17 17:28 02/21/17 00:35 02/21/17 00:40 02/21/17 08:18 Range/Units Activated Partial Thromboplast Time 75.3 54.6 46.8 21.0-31.0 SECONDS Partial Thromboplastin Ratio 2.9 2.1 1.8 Total Creatine Kinase 92 79 39-308 U/L Creatine Kinase MB 0.7 1.0 0.5-3.6 ng/ml Creatine Kinase MB Ratio 0.8 1.3 0-3.0 Troponin I < 0.015 < 0.015 < 0.015 0-0.045 ng/ml Sodium Level 138 136-145 mmol/L Potassium Level 3.8 3.5-5.1 mmol/L Chloride Level 104 98-107 mmol/L Carbon Dioxide Level 25 21-32 mmol/L Anion Gap 9.0 3-11 mmol/L Blood Urea Nitrogen 18 7-18 mg/dl Creatinine 1.20 0.60-1.40 mg/dl Est Creatinine Clear Calc Drug Dose 97.4 ml/min Estimated GFR () 80.1 Estimated GFR (Non- 69.1 BUN/Creatinine Ratio 14.7 10-20 Random Glucose 138 70-99 mg/dl Calcium Level 8.2 8.5-10.1 mg/dl Triglycerides Level 194 0-150 mg/dl Cholesterol Level 171 0-200 mg/dl HDL Cholesterol 66 mg/dl LDL Cholesterol, Calculated 66 mg/dl VLDL Cholesterol, Calculated 39 mg/dl Cholesterol/HDL Ratio 2.6 White Blood Count 7.49 4.8-10.8 K/uL Red Blood Count 4.48 4.7-6.1 M/uL Hemoglobin 14.1 14.0-18.0 g/dL Hematocrit 40.2 42-52 % Mean Corpuscular Volume 89.7 80-100 fL Mean Corpuscular Hemoglobin 31.5 25-34 pg Mean Corpuscular Hemoglobin Concent 35.1 32-36 g/dl Platelet Count 113 130-400 K/uL Mean Platelet Volume 10.3 7.4-10.4 fL Neutrophils (%) (Auto) 62.5 % Lymphocytes (%) (Auto) 23.2 % Monocytes (%) (Auto) 6.8 % Eosinophils (%) (Auto) 6.7 % Basophils (%) (Auto) 0.5 % Neutrophils # (Auto) 4.68 1.4-6.5 K/uL Lymphocytes # (Auto) 1.74 1.2-3.4 K/uL Monocytes # (Auto) 0.51 0.11-0.59 K/uL Eosinophils # (Auto) 0.50 0-0.5 K/uL Basophils # (Auto) 0.04 0-0.2 K/uL RDW Standard Deviation 42.6 36.4-46.3 fL RDW Coefficient of Variation 13.1 11.5-14.5 % Immature Granulocyte % (Auto) 0.3 % Immature Granulocyte # (Auto) 0.02 0.00-0.02 K/uL Lipase 191 73-393 U/L Test 02/21/17 16:22 Range/Units Activated Partial Thromboplast Time 65.1 21.0-31.0 SECONDS Partial Thromboplastin Ratio 2.5 Assessment and Plan 51 yo Male with hx of HTN, HLD, Tobacco use, GERD, FHx of Aortic Aneurysm p/w constant substernal Chest pain, diaphoresis with unremarkabl EKG, negative serial troponins Chest pain: Angina/ CAD vs GERD vs Peptic ulcer vs Gastritis - EKG unremarkable -Negative Serial troponins x3 - lack of consistent EKG, caridac enzyme findings but had atypical presentation last time when had coronary event - Due to symptoms similar to [facility], Catherization scheduled for 02/23 - continue heparin drip, - continue aspirin, kendra, metoprolol, lipitor - Cardiology input appreciated CAD s/p stent (2003), HLD - Continue ASA, Lipitor, Enalapril, Metoprolol GERD -continue Ranitidine -Started Protonix PO - if cardiac work up neg - should have outpatient GI eval Recurrent Sinusitis - Continue Ceftin Depression - Zoloft DVT prophylaxis -Heparin drip Continued [facility] stay due to: inadequate oral pain control, multiple IV medications needed Discharge planning: home Resident Tracking Resident Involvement: Resident Care Provided Care Provided: Adult Hospital Medicine Reviewed: Pt Seen/Exam by Me History continuing to have off and on severe chest pain Constitutional: denies: fever Respiratory: negative: short of breath Cardiovascular: reports chest pain General Appearance: mild distress Respiratory: lungs clear, no respiratory distress Cardiovascular: regular rate, rhythm Neurologic/Psychiatric: alert, oriented x 3 Skin Characteristics: warm/dry Assessment/Plan Resident Physician Supervision Note: I was present with Dr. Stovall in bedside. I verified the blanco history and physical, reviewed labs and image studies, discussed the case with the resident and agree with the findings and care plan.
[2017-02-21 16:49] LABS: PARTIAL THROMBOPLASTIN RATIO 2.5
[2017-02-21] MEDS: ENALAPRIL MALEATE 10 MG TAB PO SCH (21:10)
[2017-02-21] MEDS: ASPIRIN 81 MG ECTAB PO SCH (21:11)
[2017-02-22] MEDS: MoRPHine SULFATE 2 MG/ML CARP IV PRN ×4 (02:50→21:19)
[2017-02-22] MEDS: NITROGLYCERIN OINT 2% 1GM PACKET EXT SCH ×4 (04:10→20:35)
[2017-02-22 04:21] VITALS: BP 164/94; PULSE 81; TEMP 37.3; O2SAT 92
[2017-02-22] MEDS: SUCRALFATE 1 GM/10 ML UDC PO SCH ×5 (06:00→23:20)
[2017-02-22] MEDS: RANITIDINE IV 50 MG in DEXTROSE 5% 100ML 100 ML IV SCH ×4 (06:25→22:04)
[2017-02-22 06:56] LABS: PARTIAL THROMBOPLASTIN RATIO 2.6
[2017-02-22] MEDS: THIAMINE HCL 100 MG TAB PO SCH (07:06)
[2017-02-22] MEDS: CEFUROXIME AXETIL 250 MG TAB PO SCH (07:06)
[2017-02-22] MEDS: SERTRALINE HCL 100 MG TAB PO SCH (07:06)
[2017-02-22] MEDS: PANTOprazole SOD 40 MG TAB PO SCH ×2 (07:06→20:35)
[2017-02-22] MEDS: POLYETHYLENE (MIRALAX) 17 GM PACK PO SCH (07:07)
[2017-02-22] MEDS: ATORVASTATIN 40 MG TAB PO SCH (07:07)
[2017-02-22] MEDS: METOPROLOL TARTRATE 25 MG TAB PO SCH ×4 (07:07→20:35)
[2017-02-22] MEDS: HEPARIN 25,000 UNIT/500ML D5W 500 ML IV PRN ×2 (07:08→20:31)
[2017-02-22 07:21] LABS: HEMATOCRIT 37.7 % (42-52); MEAN CELL VOLUME 89.3 fL (80-100); MEAN CORPUSCULAR HEMOGLOBIN 31.8 pg (25-34); RED BLOOD COUNT 4.22 M/uL (4.7-6.1); WHITE BLOOD COUNT 5.88 K/uL (4.8-10.8)
[2017-02-22 07:48] LABS: MEAN CORPUSCULAR HGB CONC 35.5 g/dl (32-36); MEAN PLATELET VOLUME 10.4 fL (7.4-10.4); PLATELET COUNT 98 K/uL (130-400)
[2017-02-22 07:50] LABS: BASO % 0.5 %; BASO ABS # 0.03 K/uL (0-0.2); COMPLETE YES; EOS % 7.7 %; IG% 0.3 %; LYMPH % 21.6 %; LYMPH ABS # 1.27 K/uL (1.2-3.4); MONO % 8.5 %; NEUT % 61.4 %; PLT ESTIMATE DECREASED
[2017-02-22 07:58] LABS: BUN/CREATININE RATIO 14.7 (10-20); CALCIUM 8.5 mg/dl (8.5-10.1); CREATININE 1.2 mg/dl (0.60-1.40); POTASSIUM 3.7 mmol/L (3.5-5.1)
[2017-02-22 08:03] VITALS: BP 145/90; PULSE 70; TEMP 36.5; O2SAT 92
--- NOTE | 2017-02-22 10:51 | Family Medicine Progress Note ---
Progress Note Date of Service Feb 22, 2017. Subjective Pt evaluation today including: conversation w/ patient, physical exam, chart review, lab review, review of studies, review of inpatient medication list Pain: intermittent epigastric pain PO Intake: adequte Voiding: no voiding problems Night resident that patient requested to leave AMA but he has since changed his mind and plans to stay in hospital until catheterization, Patient reports CP has somewhat improved. It is no longer constant by lasts for about 30 min and is worse after eating. Patient described as burning quality. Medications Current Inpatient Medications Medications (Trade) Dose Ordered Sig/Wilfredo Route Start Time Stop Time Status Last Admin Dose Admin Acetaminophen (Tylenol Tab) 650 mg Q4H PRN PO 02/20/17 11:15 03/22/17 11:14 Al Hydrox/Mg Hydrox/Simethicone (Maalox Max Susp) 15 ml Q4H PRN PO 02/20/17 11:15 03/22/17 11:14 02/20/17 13:32 15 ML Magnesium Hydroxide (Milk Of Magnesia Susp) 30 ml Q12H PRN PO 02/20/17 11:15 03/22/17 11:14 Ondansetron HCl (Zofran Inj) 4 mg Q6H PRN IV 02/20/17 11:15 03/22/17 11:14 02/21/17 09:17 4 MG Aspirin (Ecotrin Tab) 81 mg QPM PO 02/20/17 21:00 03/22/17 20:59 02/21/17 21:11 81 MG Atorvastatin Calcium (Lipitor Tab) 80 mg DAILY PO 02/21/17 09:00 03/23/17 08:59 02/22/17 07:07 80 MG Cefuroxime Axetil (Ceftin Tab) 250 mg BID PO 02/20/17 21:00 02/22/17 20:59 02/22/17 07:06 250 MG Lorazepam (Ativan Tab) 1 mg Q6H PRN PO 02/20/17 11:15 03/22/17 11:14 02/21/17 21:09 1 MG Nitroglycerin (Nitrostat Tab) 0.4 mg PRN UT 02/20/17 11:15 03/22/17 11:14 Sertraline HCl (Zoloft Tab) 200 mg DAILY PO 02/21/17 09:00 03/23/17 08:59 02/22/17 07:06 200 MG Polyethylene (Miralax Powder Packet) 17 gm DAILY PO 02/21/17 09:00 03/23/17 08:59 02/22/17 07:07 17 GM Enalapril Maleate (Vasotec Tab) 10 mg QPM PO 02/20/17 21:00 03/22/17 20:59 02/21/17 21:10 10 MG Metoprolol Tartrate (Lopressor Tab) 12.5 mg QID PO 02/20/17 13:00 03/23/17 08:59 02/22/17 07:07 12.5 MG Miscellaneous (Iv Fluids Completed) 1 ea PRN PRN N/A 02/20/17 12:45 02/20/18 12:44 Heparin Sodium/ Dextrose 500 ml @ 36 mls/hr [id number] PRN IV 02/20/17 13:15 03/22/17 13:14 02/22/17 07:08 36 MLS/HR Lorazepam (Ativan Tab) 1 mg ONE PRN PO 02/20/17 13:30 Folic Acid (Folvite Tab) 1 mg QAM PO 02/21/17 09:00 03/23/17 08:59 02/22/17 07:06 1 MG Thiamine HCl (Vitamin B-1 Tab) 100 mg DAILY PO 02/21/17 09:00 03/23/17 08:59 02/22/17 07:06 100 MG Nitroglycerin (Nitroglycerin 2% Oint) 0.5 inch Q6H EXT 02/20/17 16:00 03/22/17 15:59 02/22/17 09:40 0.5 INCH Ioversol (Optiray 320) 100 ml UD PRN IV 02/21/17 00:45 02/25/17 00:44 Hydralazine HCl (HydrALAZINE INJ) 10 mg Q4H PRN IV. 02/21/17 02:15 03/23/17 02:14 Ranitidine HCl 50 mg/Dextrose 102 ml @ 200 mls/hr Q8H IV 02/21/17 06:30 03/23/17 06:29 02/22/17 07:06 200 MLS/HR Pantoprazole Sodium (Protonix Tab) 40 mg BID PO 02/21/17 09:00 03/23/17 08:59 02/22/17 07:06 40 MG Sucralfate (Carafate Susp) 1 gm Q6H PO 02/22/17 06:00 03/24/17 05:59 02/22/17 07:06 1 GM Morphine Sulfate (MoRPHine SULFATE INJ) 2 mg Q1H PRN IV 02/22/17 06:30 03/06/17 11:59 Objective Vital Signs Results Past 24 Hours Test 02/21/17 16:22 02/22/17 06:07 02/22/17 07:01 Range/Units Activated Partial Thromboplast Time 65.1 67.9 21.0-31.0 SECONDS Partial Thromboplastin Ratio 2.5 2.6 Troponin I < 0.015 0-0.045 ng/ml White Blood Count 5.88 4.8-10.8 K/uL Red Blood Count 4.22 4.7-6.1 M/uL Hemoglobin 13.4 14.0-18.0 g/dL Hematocrit 37.7 42-52 % Mean Corpuscular Volume 89.3 80-100 fL Mean Corpuscular Hemoglobin 31.8 25-34 pg Mean Corpuscular Hemoglobin Concent 35.5 32-36 g/dl Platelet Count 98 130-400 K/uL Mean Platelet Volume 10.4 7.4-10.4 fL Neutrophils (%) (Auto) 61.4 % Lymphocytes (%) (Auto) 21.6 % Monocytes (%) (Auto) 8.5 % Eosinophils (%) (Auto) 7.7 % Basophils (%) (Auto) 0.5 % Neutrophils # (Auto) 3.61 1.4-6.5 K/uL Lymphocytes # (Auto) 1.27 1.2-3.4 K/uL Monocytes # (Auto) 0.50 0.11-0.59 K/uL Eosinophils # (Auto) 0.45 0-0.5 K/uL Basophils # (Auto) 0.03 0-0.2 K/uL RDW Standard Deviation 42.7 36.4-46.3 fL RDW Coefficient of Variation 13.1 11.5-14.5 % Immature Granulocyte % (Auto) 0.3 % Immature Granulocyte # (Auto) 0.02 0.00-0.02 K/uL Platelet Estimate DECREASED Sodium Level 137 136-145 mmol/L Potassium Level 3.7 3.5-5.1 mmol/L Chloride Level 103 98-107 mmol/L Carbon Dioxide Level 28 21-32 mmol/L Anion Gap 6.0 3-11 mmol/L Blood Urea Nitrogen 18 7-18 mg/dl Creatinine 1.20 0.60-1.40 mg/dl Est Creatinine Clear Calc Drug Dose 96.2 ml/min Estimated GFR () 80.1 Estimated GFR (Non- 69.1 BUN/Creatinine Ratio 14.7 10-20 Random Glucose 134 70-99 mg/dl Calcium Level 8.5 8.5-10.1 mg/dl Physical Exam Notes: GENERAL: alert, No distress EYE EXAM: normal conjunctiva, PERRL and EOM's grossly intact NECK: supple, no nuchal rigidity, no adenopathy, non-tender LUNGS: Clear to auscultation. Normal chest wall mechanics HEART: no murmurs, S1 normal and S2 normal ABDOMEN: abdomen soft, non-tender, normo-active bowel sounds, no masses, no rebound or guarding. SKIN: no rashes and no bruising UPPER EXTREMITIES: upper extremities are grossly normal. LOWER EXTREMITIES: No pitting edema. NEURO EXAM: Normal sensorium, cranial nerves II-XII grossly intact, normal speech, no gross weakness of arms, no gross weakness of legs. Laboratory Results Results Past 24 Hours Test 02/21/17 16:22 02/22/17 06:07 02/22/17 07:01 Range/Units Activated Partial Thromboplast Time 65.1 67.9 21.0-31.0 SECONDS Partial Thromboplastin Ratio 2.5 2.6 Troponin I < 0.015 0-0.045 ng/ml White Blood Count 5.88 4.8-10.8 K/uL Red Blood Count 4.22 4.7-6.1 M/uL Hemoglobin 13.4 14.0-18.0 g/dL Hematocrit 37.7 42-52 % Mean Corpuscular Volume 89.3 80-100 fL Mean Corpuscular Hemoglobin 31.8 25-34 pg Mean Corpuscular Hemoglobin Concent 35.5 32-36 g/dl Platelet Count 98 130-400 K/uL Mean Platelet Volume 10.4 7.4-10.4 fL Neutrophils (%) (Auto) 61.4 % Lymphocytes (%) (Auto) 21.6 % Monocytes (%) (Auto) 8.5 % Eosinophils (%) (Auto) 7.7 % Basophils (%) (Auto) 0.5 % Neutrophils # (Auto) 3.61 1.4-6.5 K/uL Lymphocytes # (Auto) 1.27 1.2-3.4 K/uL Monocytes # (Auto) 0.50 0.11-0.59 K/uL Eosinophils # (Auto) 0.45 0-0.5 K/uL Basophils # (Auto) 0.03 0-0.2 K/uL RDW Standard Deviation 42.7 36.4-46.3 fL RDW Coefficient of Variation 13.1 11.5-14.5 % Immature Granulocyte % (Auto) 0.3 % Immature Granulocyte # (Auto) 0.02 0.00-0.02 K/uL Platelet Estimate DECREASED Sodium Level 137 136-145 mmol/L Potassium Level 3.7 3.5-5.1 mmol/L Chloride Level 103 98-107 mmol/L Carbon Dioxide Level 28 21-32 mmol/L Anion Gap 6.0 3-11 mmol/L Blood Urea Nitrogen 18 7-18 mg/dl Creatinine 1.20 0.60-1.40 mg/dl Est Creatinine Clear Calc Drug Dose 96.2 ml/min Estimated GFR () 80.1 Estimated GFR (Non- 69.1 BUN/Creatinine Ratio 14.7 10-20 Random Glucose 134 70-99 mg/dl Calcium Level 8.5 8.5-10.1 mg/dl Assessment and Plan 51 yo Male with hx of HTN, HLD, Tobacco use, GERD, FHx of Aortic Aneurysm p/w constant substernal Chest pain, diaphoresis with unremarkable EKG, negative serial troponins Chest pain: Angina/ CAD vs GERD vs Peptic ulcer vs Gastritis -Chest pain better today -EKG unremarkable -Negative Serial troponins x3 - lack of consistent EKG, cardiac enzyme findings but had atypical presentation last time when had coronary event - Due to symptoms similar to previous MD, Catheterization scheduled for 02/23 - continue heparin drip, - continue aspirin, kendra, metoprolol, lipitor - Cardiology input appreciated CAD s/p stent (2003), HLD - Continue ASA, Lipitor, Enalapril, Metoprolol GERD -continue Ranitidine -Started Protonix PO - if cardiac work up neg - should have outpatient GI eval Recurrent Sinusitis - Continue Ceftin Depression - Zoloft DVT prophylaxis -Heparin drip Continued [facility] stay due to: multiple IV medications needed Discharge planning: home Resident Tracking Resident Involvement: Resident Care Provided Care Provided: Adult Hospital Medicine Reviewed: Pt Seen/Exam by Me History chest pain better now Constitutional: denies: fever General Appearance: no apparent distress Respiratory: lungs clear, no respiratory distress Cardiovascular: regular rate, rhythm Neurologic/Psychiatric: alert, oriented x 3 Skin Characteristics: warm/dry Assessment/Plan Resident Physician Supervision Note: I was present with Dr. Stovall in bedside. I verified the blanco history and physical, reviewed labs and image studies, discussed the case with the resident and agree with the findings and care plan.
[2017-02-22 11:18] VITALS: BP 133/89; PULSE 58; TEMP 36.7; O2SAT 93
[2017-02-22 16:18] VITALS: BP 131/86; PULSE 65; TEMP 36.4; O2SAT 95
[2017-02-22] MEDS ORDERED: NURSING VERBAL MED ORDER ONE (19:15)
[2017-02-22 19:42] VITALS: BP 132/88; PULSE 62; TEMP 37; O2SAT 92
[2017-02-22] MEDS: ASPIRIN 81 MG ECTAB PO SCH (20:35)
[2017-02-22] MEDS: ENALAPRIL MALEATE 10 MG TAB PO SCH (20:35)
[2017-02-22 23:40] VITALS: BP 142/88; PULSE 62; TEMP 36.5; O2SAT 94
[2017-02-23] VITALS (15 sets, daily range): BP systolic 115–141; BP diastolic 68–98; PULSE 54–81; TEMP 36.3–36.8; O2SAT 93–96
[2017-02-23] MEDS ORDERED: [UNRECOGNIZED DRUG - REMARK] ONE (03:00)
[2017-02-23] MEDS: NITROGLYCERIN OINT 2% 1GM PACKET EXT SCH ×4 (04:00→21:47)
[2017-02-23] MEDS: SUCRALFATE 1 GM/10 ML UDC PO SCH ×4 (06:00→23:59)
[2017-02-23 06:31] LABS: PARTIAL THROMBOPLASTIN RATIO 1.2
[2017-02-23] MEDS: RANITIDINE IV 50 MG in DEXTROSE 5% 100ML 100 ML IV SCH ×3 (06:34→23:59)
[2017-02-23] MEDS: METOPROLOL TARTRATE 25 MG TAB PO SCH ×4 (07:37→21:47)
[2017-02-23] MEDS: SERTRALINE HCL 100 MG TAB PO SCH (07:38)
[2017-02-23] MEDS: PANTOprazole SOD 40 MG TAB PO SCH ×2 (07:38→21:48)
[2017-02-23] MEDS: THIAMINE HCL 100 MG TAB PO SCH (07:39)
[2017-02-23] MEDS: ATORVASTATIN 40 MG TAB PO SCH (07:40)
[2017-02-23] MEDS: POLYETHYLENE (MIRALAX) 17 GM PACK PO SCH (07:41)
[2017-02-23] MEDS ORDERED: NiCARDipine HCL INJ 2.5 MG/ML 10 ML AMP ONE (12:57)
[2017-02-23] MEDS ORDERED: MIDAZOLAM HCL 1 MG/ML 2ML VIAL ONE ×2 (12:57→14:04)
[2017-02-23] MEDS ORDERED: HEPARIN SOD (PORCINE) 1000 UNIT/ML 10 ML VIAL ONE (12:57)
[2017-02-23] MEDS ORDERED: FENTANYL CITRATE INJ 50 MCG/1 ML 2 ML VIAL ONE ×2 (12:57→14:04)
[2017-02-23] MEDS ORDERED: ADENOSINE IV SOLN 3 MG/ML 20 ML VIAL ONE (13:54)
--- NOTE | 2017-02-23 14:41 | Procedure Note ---
Pre-Mod Sedation Assessment General Date of Moderate Sedation: Feb 23, 2017. Vital Signs: Vital Signs Past 12 Hours Date Time Temp Pulse Resp B/P (MAP) Pulse Ox O2 Delivery O2 Flow Rate FiO2 02/23/17 14:25 77 16 144/83 (103) 98 Mask 3 02/23/17 12:00 96 Room Air 02/23/17 11:20 36.5 54 18 115/68 (84) 95 Room Air 02/23/17 10:13 116/73 (87) 02/23/17 08:00 96 Room Air 02/23/17 07:22 36.4 62 18 126/79 (95) 96 Room Air 02/23/17 05:19 36.5 54 18 115/68 96 Room Air 02/23/17 04:26 36.3 61 18 136/79 (98) 96 Room Air 02/23/17 04:00 Room Air Review Cardiovascular: regular rate, rhythm, no edema Abdomen: normal bowel sounds, non tender Lungs: chest non-tender, lungs clear Pre-Sedation Airway Assessment Oral Cavity: WNL Able to Visualize Vocal Cords: No Short Thick Neck: No Hx of Sleep Apnea: No Smoking Status: Former Smoker Mallampati Classification: Class III ASA Classification: Class III Procedure Planning Contraindications-for Mod Sed: None Yes Notes The planned sedation has been discussed with the patient and consent obtained. I have identified the patient, determined the appropriateness of sedation and have assessed the patient immediately prior to the procedure. All medicine(s) and interventions are by my order.
--- NOTE | 2017-02-23 14:43 | Procedure Note ---
Post-Mod Sedation Assessment General Date of Moderate Sedation Feb 23, 2017. Vital Signs: Vital Signs Past 12 Hours Date Time Temp Pulse Resp B/P (MAP) Pulse Ox O2 Delivery O2 Flow Rate FiO2 02/23/17 14:25 77 16 144/83 (103) 98 Mask 3 02/23/17 12:00 96 Room Air 02/23/17 11:20 36.5 54 18 115/68 (84) 95 Room Air 02/23/17 10:13 116/73 (87) 02/23/17 08:00 96 Room Air 02/23/17 07:22 36.4 62 18 126/79 (95) 96 Room Air 02/23/17 05:19 36.5 54 18 115/68 96 Room Air 02/23/17 04:26 36.3 61 18 136/79 (98) 96 Room Air 02/23/17 04:00 Room Air Review - Discharge Criteria Vital Signs Stable: Yes Alert/Oriented/Conversant: Yes Returned to Baseline Mental St: Yes Nausea Absent/Minimal: Yes Pain/Discomfort/Absent/Minimal: Yes Normal/Baseline Respirations: Yes Active Bleeding?: No Pt Received D/C Instructions: N/A Prescriptions Given: None Specific Proced. D/C Criteria Distal Pulses Present (Cardiac: Yes Groin site assessed-Card Cath: N/A Voided Prior To Discharge: N/A Discharged Patients Adult Escort/Transportation: Yes
--- NOTE | 2017-02-23 15:11 | Cardiac Catheterization ---
Procedure Note Procedure Date Feb 23, 2017. Pre-Procedure Diagnosis Acute Coronary Syndrome AUC Score 7 Post-Procedure Diagnosis Severe CAD, Normal Intracardiac Pressures Procedure(s) Performed Coronary Angiography, Left Heart Cath, Fractional Flow [place] [employer] Worker(s) Yoly Estimated Blood Loss 15 Medication(s) Fentanyl, Heparin, Nicardipine, Nitroglycerin, Versed, Lidocaine 1%, Adenosine Summary of Findings Indication: Suspected unstable angina Access: 6Fr Right Radial Artery Catheters: Trap, JR4; EBU 3.5 guide Findings: LM - Angiographically normal LAD - Patent proximal-mid segment stents with 40-50% eccentric in-stent restenosis, distal luminal irregularities as wraps around apex; 1st diagonal with 99% ostial stenosis just proximal to diagonal stent, JOSHUA 2 flow distally; 2nd diagonal small with 90% ostial stenosis, 50% proximal stenosis. Circumflex - Large caliber vessel; angiographically normal RCA - Dominant, large caliber vessel, 20% proximal and mid segment disease; 40- 50% ostial R-PDA stenosis. LVEDP - 2 Mid LAD iFR 0.95 FFR 0.[address] wire into 1st diagonal but unable to pass wire. JOSHUA 1 flow in diagonal post procedure, no ECG changes, no chest pain. Arterial Closure: TR Band Summary: 1. Moderate non-obstructive disease in major epicardial vessels - 40-50% proximal-mid LAD instent restenosis (FFR 0.87) - 40-50% ostial R-PDA - Chronic 99% ostial 1st diagonal stenosis with JOSHUA 2 flow; 90% ostial 2nd diagonal 2. Normal intracardiac filling pressure Recommendations: Return to PCU for continued monitoring and further management of non-cardiac chest pain Continue ASCVD risk factor modification and maximize antianginals Follow-up with Cardiology in 1 month Hemodynamics Rest Ao: 105/74/89 Final Ao: 119/83/99 LV: 121/2 Recommendations Medical therapy and/or Counseling Specimens None Radiation Exposure (mGy) 3821 Contrast (mls) 135 Fluids (cc crystalloids) 145 Drains None Anesthesia Moderate Procedural Complication(s) None Disposition PCU ACC Data Cardiac Status Clinical evaluation leading to the procedure CAD Presntation: Unstable angina Anginal Classification: CCS IV Heart Failure: No, NYHA Class: CCS I Cardiogenic Shock w/in 24Hrs: No Cardiac Arrest w/in 24Hrs: No Imaging studies past 6 months: Yes Stress studies past 6 months: Yes Stress Echocardiogram: Yes - Negative Coronary Anatomy Dominant: Right Left Main (% Stenosis): Normal LAD (% Stenosis): Mid (40% ISR) D1 (% Stenosis): Ostial (99) D2 (% Stenosis): Ostial (90) Circumflex (% Stenosis): Normal RCA (% Stenosis): Proximal (20), Mid (20) R PDA (% Stenosis): Ostial (40-50) Diagnostic Physician's Name: Jeffrey Hong MD Status: Elective Closure Device Percutaneous Entry Location: Radial Closure Device: Radial Band Recommendations: Medical therapy and/or Counseling Intraprocedure Events Significant Dissection: No Perforation: No
[2017-02-23] MEDS ORDERED: SODIUM CHLORIDE 0.9% 1000ML 1,000 ML IV SCH (15:13)
[2017-02-23] MEDS ORDERED: ACETAMINOPHEN 325 MG TAB PO PRN (15:15)
--- NOTE | 2017-02-23 15:27 | Cardiology Follow-Up ---
Subjective Subjective Date of Service: Feb 23, 2017. Pt evaluation today including: conversation w/ patient, conversation w/ family , physical exam, chart review, lab review, review of studies, review of inpatient medication list Additional Details: Chest pain improved. No other new complaints. Tele reviewed -- no events Review of Systems Constitutional: No fever, No chills, No weakness Respiratory: No cough, No shortness of breath Cardiac: No chest pain, No edema, No palpitations Abdomen: No pain, No nausea, No vomiting Male : No dysuria, No urinary frequency Skin: No rash, No itch Objective Vital Signs Last Vital Signs Documentation Date Time Temp Pulse Resp B/P (MAP) Pulse Ox O2 Delivery O2 Flow Rate FiO2 02/23/17 14:25 77 16 144/83 (103) 98 Mask 3 02/23/17 11:20 36.5 Physical Exam: General Appearance: no apparent distress Neck: no JVD Respiratory/Chest: chest non-tender, lungs clear Cardiovascular: regular rate, rhythm, no edema, no murmur Abdomen: non tender, soft Extremities: no pedal edema, no calf tenderness, normal capillary refill Neurologic/Psychiatric: alert, normal mood/affect Skin: normal color, warm/dry Assessment and Plan 1. Noncardiac chest pain 2. CAD s/p prior anterior AK, multiple stents to LAD/Diagonal -- non- obstructive instent restenosis in LAD; subtotal 1st diagonal occlusion 3. Hypertension 4. Dyslipidemia 5. GERD 6. Thrombocytopenia Coronary angiography revealed nonobstructive ISR in LAD (FFR negative) and severe disease in 1st and 2nd diagonals. Attempted to place wire in 1st diagonal but looks to be chronic in nature. Chronic diagonal disease not the cause of patients recent pain and suspect chest pain is non-cardiac. Would medically manage diagonal disease in the setting of recent stress test without evidence of ischemia. -- after attempted wire placement in diagonal would monitor overnight. -- continue ASA/statin -- continue current beta-effie -- can resume amlodipine as an outpatient -- further titration of antianginal as needed as an outpatient From a cardiac standpoint OK for discharge tomorrow AM if stable overnight. Continued [facility] stay due to: multiple IV medications needed Discharge planning: home Medications: Current Inpatient Medications Medications (Trade) Dose Ordered Sig/Wilfredo Route Start Time Stop Time Status Last Admin Dose Admin Acetaminophen (Tylenol Tab) 650 mg Q4H PRN PO 02/20/17 11:15 03/22/17 11:14 Al Hydrox/Mg Hydrox/Simethicone (Maalox Max Susp) 15 ml Q4H PRN PO 02/20/17 11:15 03/22/17 11:14 02/20/17 13:32 15 ML Magnesium Hydroxide (Milk Of Magnesia Susp) 30 ml Q12H PRN PO 02/20/17 11:15 03/22/17 11:14 Ondansetron HCl (Zofran Inj) 4 mg Q6H PRN IV 02/20/17 11:15 03/22/17 11:14 02/21/17 09:17 4 MG Aspirin (Ecotrin Tab) 81 mg QPM PO 02/20/17 21:00 03/22/17 20:59 02/22/17 20:35 81 MG Atorvastatin Calcium (Lipitor Tab) 80 mg DAILY PO 02/21/17 09:00 03/23/17 08:59 02/23/17 07:40 80 MG Lorazepam (Ativan Tab) 1 mg Q6H PRN PO 02/20/17 11:15 03/22/17 11:14 02/21/17 21:09 1 MG Nitroglycerin (Nitrostat Tab) 0.4 mg PRN UT 02/20/17 11:15 03/22/17 11:14 Sertraline HCl (Zoloft Tab) 200 mg DAILY PO 02/21/17 09:00 03/23/17 08:59 02/23/17 07:38 200 MG Polyethylene (Miralax Powder Packet) 17 gm DAILY PO 02/21/17 09:00 03/23/17 08:59 02/22/17 07:07 17 GM Enalapril Maleate (Vasotec Tab) 10 mg QPM PO 02/20/17 21:00 03/22/17 20:59 02/22/17 20:35 10 MG Metoprolol Tartrate (Lopressor Tab) 12.5 mg QID PO 02/20/17 13:00 03/23/17 08:59 02/23/17 07:37 12.5 MG Miscellaneous (Iv Fluids Completed) 1 ea PRN PRN N/A 02/20/17 12:45 02/20/18 12:44 Lorazepam (Ativan Tab) 1 mg ONE PRN PO 02/20/17 13:30 Folic Acid (Folvite Tab) 1 mg QAM PO 02/21/17 09:00 03/23/17 08:59 02/23/17 07:38 1 MG Thiamine HCl (Vitamin B-1 Tab) 100 mg DAILY PO 02/21/17 09:00 03/23/17 08:59 02/23/17 07:39 100 MG Nitroglycerin (Nitroglycerin 2% Oint) 0.5 inch Q6H EXT 02/20/17 16:00 03/22/17 15:59 02/23/17 10:12 0.5 INCH Ioversol (Optiray 320) 100 ml UD PRN IV 02/21/17 00:45 02/25/17 00:44 Hydralazine HCl (HydrALAZINE INJ) 10 mg Q4H PRN IV. 02/21/17 02:15 03/23/17 02:14 Ranitidine HCl 50 mg/Dextrose 102 ml @ 200 mls/hr Q8H IV 02/21/17 06:30 03/23/17 06:29 02/23/17 06:34 200 MLS/HR Pantoprazole Sodium (Protonix Tab) 40 mg BID PO 02/21/17 09:00 03/23/17 08:59 02/23/17 07:38 40 MG Sucralfate (Carafate Susp) 1 gm Q6H PO 02/22/17 06:00 03/24/17 05:59 02/22/17 23:20 1 GM Morphine Sulfate (MoRPHine SULFATE INJ) 2 mg Q1H PRN IV 02/22/17 06:30 03/06/17 11:59 02/22/17 21:19 2 MG Lab Results: Test 02/23/17 06:10 02/23/17 14:20 Activated Partial Thromboplast Time 31.6 SECONDS (21.0-31.0) Partial Thromboplastin Ratio 1.2 Kaolin Activated Coagulation Time 230 SECONDS (94-140)
--- NOTE | 2017-02-23 18:06 | Family Medicine Progress Note ---
Progress Note Date of Service Feb 23, 2017. Subjective Pt evaluation today including: conversation w/ patient, physical exam, chart review, lab review, review of studies Pain: No pain reported Voiding: no voiding problems Patient is resting comfortably in bed this afternoon after returning from the cardiac catheterization and has no acute complaints. He does state that he had some upper GI discomfort when eating chicken yesterday and had a similar yet milder pain than he presented with. Constitutional: No fever, No chills, No sweats, No fatigue Respiratory: No cough, No wheezing, No shortness of breath Cardiovascular: No chest pain, No palpitations Abdomen: No pain, No nausea, No vomiting, No diarrhea Neurologic: No weakness, No numbness/tingling Heme: No abnormal bleeding/bruising Medications Current Inpatient Medications Medications (Trade) Dose Ordered Sig/Wilfredo Route Start Time Stop Time Status Last Admin Dose Admin Acetaminophen (Tylenol Tab) 650 mg Q4H PRN PO 02/20/17 11:15 03/22/17 11:14 Al Hydrox/Mg Hydrox/Simethicone (Maalox Max Susp) 15 ml Q4H PRN PO 02/20/17 11:15 03/22/17 11:14 02/20/17 13:32 15 ML Magnesium Hydroxide (Milk Of Magnesia Susp) 30 ml Q12H PRN PO 02/20/17 11:15 03/22/17 11:14 Ondansetron HCl (Zofran Inj) 4 mg Q6H PRN IV 02/20/17 11:15 03/22/17 11:14 02/21/17 09:17 4 MG Aspirin (Ecotrin Tab) 81 mg QPM PO 02/20/17 21:00 03/22/17 20:59 02/22/17 20:35 81 MG Atorvastatin Calcium (Lipitor Tab) 80 mg DAILY PO 02/21/17 09:00 03/23/17 08:59 02/23/17 07:40 80 MG Lorazepam (Ativan Tab) 1 mg Q6H PRN PO 02/20/17 11:15 03/22/17 11:14 02/21/17 21:09 1 MG Nitroglycerin (Nitrostat Tab) 0.4 mg PRN UT 02/20/17 11:15 03/22/17 11:14 Sertraline HCl (Zoloft Tab) 200 mg DAILY PO 02/21/17 09:00 03/23/17 08:59 02/23/17 07:38 200 MG Polyethylene (Miralax Powder Packet) 17 gm DAILY PO 02/21/17 09:00 03/23/17 08:59 02/22/17 07:07 17 GM Enalapril Maleate (Vasotec Tab) 10 mg QPM PO 02/20/17 21:00 03/22/17 20:59 02/22/17 20:35 10 MG Metoprolol Tartrate (Lopressor Tab) 12.5 mg QID PO 02/20/17 13:00 03/23/17 08:59 02/23/17 07:37 12.5 MG Miscellaneous (Iv Fluids Completed) 1 ea PRN PRN N/A 02/20/17 12:45 02/20/18 12:44 Lorazepam (Ativan Tab) 1 mg ONE PRN PO 02/20/17 13:30 Folic Acid (Folvite Tab) 1 mg QAM PO 02/21/17 09:00 03/23/17 08:59 02/23/17 07:38 1 MG Thiamine HCl (Vitamin B-1 Tab) 100 mg DAILY PO 02/21/17 09:00 03/23/17 08:59 02/23/17 07:39 100 MG Nitroglycerin (Nitroglycerin 2% Oint) 0.5 inch Q6H EXT 02/20/17 16:00 03/22/17 15:59 02/23/17 10:12 0.5 INCH Ioversol (Optiray 320) 100 ml UD PRN IV 02/21/17 00:45 02/25/17 00:44 Hydralazine HCl (HydrALAZINE INJ) 10 mg Q4H PRN IV. 02/21/17 02:15 03/23/17 02:14 Ranitidine HCl 50 mg/Dextrose 102 ml @ 200 mls/hr Q8H IV 02/21/17 06:30 03/23/17 06:29 02/23/17 06:34 200 MLS/HR Pantoprazole Sodium (Protonix Tab) 40 mg BID PO 02/21/17 09:00 03/23/17 08:59 02/23/17 07:38 40 MG Sucralfate (Carafate Susp) 1 gm Q6H PO 02/22/17 06:00 03/24/17 05:59 02/22/17 23:20 1 GM Morphine Sulfate (MoRPHine SULFATE INJ) 2 mg Q1H PRN IV 02/22/17 06:30 03/06/17 11:59 02/22/17 21:19 2 MG Sodium Chloride 1,000 ml @ 100 mls/hr Q10H IV 02/23/17 15:13 02/23/17 22:42 Objective Vital Signs Date Time Temp Pulse Resp B/P (MAP) Pulse Ox O2 Delivery O2 Flow Rate FiO2 02/23/17 18:01 36.8 71 16 121/68 (85) 96 02/23/17 17:01 36.8 81 16 128/80 (96) 96 02/23/17 16:31 36.8 74 16 132/74 (93) 93 02/23/17 16:01 36.8 72 16 124/79 (94) 93 02/23/17 15:46 36.8 68 16 130/79 (96) 93 02/23/17 15:30 72 16 140/82 (101) 95 Room Air 02/23/17 15:15 73 14 141/81 (101) 96 Room Air 02/23/17 15:00 72 16 152/81 (104) 95 Room Air 02/23/17 14:50 69 16 145/80 (101) 96 Room Air 02/23/17 14:40 68 16 141/82 (101) 95 Room Air 02/23/17 14:25 77 16 144/83 (103) 98 Mask 3 02/23/17 12:00 96 Room Air 02/23/17 11:20 36.5 54 18 115/68 (84) 95 Room Air 02/23/17 10:13 116/73 (87) 02/23/17 08:00 96 Room Air 02/23/17 07:22 36.4 62 18 126/79 (95) 96 Room Air 02/23/17 05:19 36.5 54 18 115/68 96 Room Air 02/23/17 04:26 36.3 61 18 136/79 (98) 96 Room Air 02/23/17 04:00 Room Air 02/23/17 00:00 Room Air 02/22/17 23:40 36.5 62 16 142/88 (106) 94 02/22/17 20:00 Room Air 02/22/17 19:42 37.0 62 18 132/88 (103) 92 Room Air Physical Exam General Appearance: WD/WN, no apparent distress Eyes: normal inspection, sclerae normal Respiratory/Chest: chest non-tender, lungs clear, normal breath sounds Cardiovascular: regular rate, rhythm, no edema, no gallop Abdomen: normal bowel sounds, non tender, soft Extremities: normal range of motion, non-tender, normal inspection 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, no motor/sensory deficits, alert, normal mood/affect, oriented x 3 Laboratory Results Results Past 24 Hours Test 02/23/17 06:10 02/23/17 14:20 Range/Units Activated Partial Thromboplast Time 31.6 21.0-31.0 SECONDS Partial Thromboplastin Ratio 1.2 Kaolin Activated Coagulation Time 230 94-140 SECONDS Assessment and Plan 51 yo Male with hx of HTN, HLD, Tobacco use, GERD, FHx of Aortic Aneurysm presented to the ED with constant substernal Chest pain, diaphoresis with unremarkable EKG, negative serial troponins 1) Chest pain: Angina/ CAD vs GERD vs Peptic ulcer vs Gastritis - Resolved, no complaints of chest pain today - CATH today (02/23):Nonobstructive ISR in LAD (FFR negative) and severe disease in 1st and 2nd diagonals. Attempted wire placement through first diagonal but unable due to chronic nature - EKG unremarkable, NSR with no ST changes - Negative Serial troponins x3 - Continue Aspirin, ACEi, Metoprolol, Lipitor - Cardiology states chest pain most likely non-cardiac, follow up with Cardiology in 1 month 2) GERD - Due to negative cardiac catheterization and reflux symptoms associated with chest pain, GERD is most likely diagnosis - Continue Ranitidine - Continue Protonix PO --> As well as on discharge - if cardiac work up neg - should have outpatient GI evaluate including potential EGD 3) CAD s/p stent (2003), HLD - Continue ASA, Lipitor, Enalapril, Metoprolol 4) Recurrent Sinusitis - Continue Ceftin 5) Depression - Zoloft 6) DVT prophylaxis - Discontinued heparin drip prior to cath Resident Tracking Resident Involvement: Resident Care Provided Care Provided: Adult Hospital Medicine Reviewed: Pt Seen/Exam by Me History Resident Physician Supervision Note: I interviewed and examined the patient. Discussed with Dr. De La Rosa and agree with findings and plan as documented in the note. Any exceptions or clarifications are listed here: Patient had cardiac cath today which showed chronic obstructive disease which was not amenable to stenting, but was not felt to be the cause of his chest pain. He has had no further chest pain in the last 48 hours but it does seem to be related to eating. He is improved since being placed on Protonix here. His a history of alcohol abuse and admits to drinking 8 beers per night on the weekends and a case of beer every week total. He feels that he should cut down on his drinking. Vitals and telemetry reviewed No acute distress, alert awake oriented 3 Regular rate and rhythm, no murmurs gallops or rubs, clear to auscultation bilaterally no wheezes crackles or rhonchi Positive bowel sounds soft nontender nondistended Extremities no edema, 2+ dorsalis pedis pulses Skin no rashes 21-year-old male here with atypical chest pain with a history of CAD. Troponins negative EKGs without ischemic changes. Cardiac cath with chronic obstructive disease not amenable to stenting and is not the cause of his chest pain. -Highly suspect GI cause and is now improved Protonix -Will be stable for discharge tomorrow if no events on telemetry overnight and no recurrence of chest pain. He is not anemic and I do not suspect he has GI bleeding, however he would benefit from an EGD as an outpatient to make sure there is no esophageal stricture, Schatzki's ring, esophageal ulcerations, peptic ulcer disease, or other cause for his symptoms. Documented By: Nevin Brice
[2017-02-23] MEDS: ENALAPRIL MALEATE 10 MG TAB PO SCH (21:48)
[2017-02-23] MEDS: ASPIRIN 81 MG ECTAB PO SCH (21:48)
[2017-02-24 03:49] VITALS: BP 114/73; PULSE 61; TEMP 36.4; O2SAT 96
[2017-02-24] MEDS: NITROGLYCERIN OINT 2% 1GM PACKET EXT SCH ×2 (04:00→10:00)
[2017-02-24] MEDS: SUCRALFATE 1 GM/10 ML UDC PO SCH ×2 (06:15→12:09)
[2017-02-24] MEDS: RANITIDINE IV 50 MG in DEXTROSE 5% 100ML 100 ML IV SCH (06:15)
[2017-02-24 07:51] LABS: BASO % 0.6 %; BASO ABS # 0.03 K/uL (0-0.2); EOS % 7.4 %; HEMATOCRIT 40.3 % (42-52); IG% 0.4 %; LYMPH % 20.3 %; LYMPH ABS # 0.96 K/uL (1.2-3.4); MEAN CELL VOLUME 90.8 fL (80-100); MEAN CORPUSCULAR HEMOGLOBIN 31.8 pg (25-34); MONO % 9.1 %; NEUT % 62.2 %; PLATELET COUNT 106 K/uL (130-400); RED BLOOD COUNT 4.44 M/uL (4.7-6.1); WHITE BLOOD COUNT 4.74 K/uL (4.8-10.8)
[2017-02-24 07:56] VITALS: BP 119/79; PULSE 70; TEMP 36.7; O2SAT 94
[2017-02-24 07:57] LABS: COMPLETE YES
[2017-02-24 08:00] VITALS: O2SAT 96
[2017-02-24 08:09] LABS: BUN/CREATININE RATIO 14.8 (10-20); CALCIUM 9.3 mg/dl (8.5-10.1); CREATININE 1.2 mg/dl (0.60-1.40); POTASSIUM 4.5 mmol/L (3.5-5.1)
[2017-02-24] MEDS: SERTRALINE HCL 100 MG TAB PO SCH (08:16)
[2017-02-24] MEDS: PANTOprazole SOD 40 MG TAB PO SCH (08:16)
[2017-02-24] MEDS: THIAMINE HCL 100 MG TAB PO SCH (08:16)
[2017-02-24] MEDS: POLYETHYLENE (MIRALAX) 17 GM PACK PO SCH (08:16)
[2017-02-24] MEDS: METOPROLOL TARTRATE 25 MG TAB PO SCH (08:17)
[2017-02-24] MEDS: ATORVASTATIN 40 MG TAB PO SCH (09:02)
[2017-02-24] MEDS ORDERED: METO-217 PO (11:35)
[2017-02-24] MEDS ORDERED: THM100 PO (11:35)
[2017-02-24] MEDS ORDERED: PRT40 PO (11:35)
[2017-02-24] MEDS ORDERED: FLV1 PO (11:35)
[2017-02-24] MEDS ORDERED: CRFL PO (11:35)
--- NOTE | 2017-02-24 11:43 | Discharge Instructions ---
Discharge Instructions Date of Service Feb 24, 2017. Admission Reason for Admission: Chest Pain Discharge Discharge Diagnosis / Problem: Chest Pain Discharge Goals Goal(s): Decrease discomfort, Improve function, Diagnostic testing Activity Recommendations Activity Limitations: as noted below Lifting Limitations: gradually increase as tolerated Exercise/Sports Limitations: gradually increase as tolerated Shower/Bathe: no limitations Driving or Machine Use: no limitations . Instructions / Follow-Up Instructions / Follow-Up You were seen in the hospital for chest pain that worked up and found to be most likely not cardiac in nature. You had a procedure called a cardiac catheterization that should chronic changes but no signs of acute blockage and no stents were placed. Based on these results and the nature of your pain it was believed to be caused by Gastrointestinal problems, specifically reflux ( heartburn) that we subsequently treated with medications. - Follow up with your primary care physician in the next week. It is also recommended that you follow up with a Gastrointestinal doctor for a procedure called an EGD to further evaluate the nature of your pain. - Take Protonix 40mg twice daily by mouth for heartburn - Take Sucralfate 10ml for the next 7 days for heartburn - We changed your heart medication to Toprol XL every morning by mouth --> STOP YOUR PREVIOUS METOPROLOL MEDICATION - Resume your other home medications - Take the following over the counter vitamins: Multivitamin, Folic Acid 1g daily, and Thiamine 100mg daily Current Hospital Diet Patient's current hospital diet: AHA Diet (Heart Healthy) Discharge Diet Recommended Diet: AHA Diet (Heart Healthy) Pending Studies Studies pending at discharge: no Laboratory Results Lipid Panel Test 02/21/17 00:35 Range/Units Triglycerides Level 194 H 0-150 mg/dl Cholesterol Level 171 0-200 mg/dl HDL Cholesterol 66 mg/dl Cholesterol/HDL Ratio 2.6 LDL Cholesterol, Calculated 66 mg/dl Medical Emergencies . Who to Call and When: Medical Emergencies: If at any time you feel your situation is an emergency, please call 911 immediately. . Non-Emergent Contact Non-Emergency issues call your: Primary Care Provider . . "Provider Documentation" section prepared by Bethel De La Rosa. . VTE Core Measure Inpt VTE Proph given/why not?: Unfractionated heparin SQ
[2017-02-24 12:14] VITALS: BP 119/79; PULSE 70; TEMP 36.7; O2SAT 96
[2017-02-24] MEDS ORDERED: METOPROLOL SUCC 50MG EXT REL TAB PO ONE (12:15)
--- NOTE | 2017-02-24 21:31 | Discharge Summary ---
Discharge Summary Date of Service Feb 24, 2017. (Bethel De La Rosa MD) Discharge Summary Admission Date: Feb 20, 2017 at 11:07 Discharge Date: Feb 24, 2017 Discharge Disposition: Home Principal Diagnosis: Chest Pain Immunizations: Have You Had Influenza Vaccine: N/A Influenza Vaccine Date: Mar 31, 2012 History of Tetanus Vaccine?: Yes History of Pneumococcal: Yes History of Hepatitis B Vaccine: Unknown (Bethel De La Rosa MD) Problems/Secondary Diagnoses: HTN HLD GERD Alcohol abuse CAD Depression (Nevin Brice MD) Medication Reconciliation New Medications: Metoprolol Succinate (Toprol Xl) 50 Mg Tabcr 50 MG PO DAILY, #30 TAB Sucralfate (Carafate) 1 Gm/10 Ml Lindsay 10 ML PO QID for 7 Days, #280 ML Folic Acid (Folic Acid) 1 Mg Tab 1 MG PO QAM for 30 Days, #30 TAB Pantoprazole (Pantoprazole Sodium) 40 Mg Tab 40 MG PO BID for 30 Days, #60 TAB Thiamine HCl (Vitamin B-1) 100 Mg Tab 100 MG PO DAILY for 30 Days, #30 TAB Continued Medications: Amlodipine Besylate (Amlodipine Besylate) 5 Mg Tab 5 MG PO DAILY, #30 Aspirin (Aspirin Ec) 81 Mg Tab 81 MG PO QPM Atorvastatin (Lipitor) 80 Mg Tab 80 MG PO DAILY, TAB Famotidine (Pepcid) 20 Mg Tab 20 MG PO BID, TAB Lorazepam (Ativan) 1 Mg Tab 1 MG PO Q6H PRN for Anxiety, TAB Nitroglycerin (Nitrostat) 0.4 Mg Tab 0.4 MG UT PRN, BTL Polyethylene Glycol 3350 (Miralax) 1 Pow Pow 17 GM PO DAILY, #255 GM Ramipril (Ramipril) 2.5 Mg Cap 2.5 MG PO QPM Sertraline Hcl (Zoloft) 100 Mg Tab 200 MG PO DAILY, TAB Discontinued Medications: Cefuroxime Axetil (Cefuroxime Axetil) 250 Mg Tab 250 MG PO BID FOR 21 DAYS STARTED 01/27/17 Metoprolol Tartrate (Lopressor) (Lopressor) 50 Mg Tab 25 MG PO DAILY, TAB Referrals At Discharge Follow up Referrals: Physician Referral - Within 1 Week with Hunter Palacios M.D. Discharge Exam Review of Systems: Constitutional: No fever, No chills, No fatigue Respiratory: No cough, No sputum, No shortness of breath Cardiovascular: No chest pain, No palpitations Abdomen: No pain, No nausea, No vomiting Musculoskeletal: No joint pain, No calf pain Physical Exam: General Appearance: WD/WN, no apparent distress Eyes: normal inspection, sclerae normal Neck: supple Respiratory/Chest: chest non-tender, lungs clear, normal breath sounds Cardiovascular: regular rate, rhythm, no edema, no gallop Abdomen / GI: normal bowel sounds, non tender, soft Extremities: normal inspection, no calf tenderness Neurologic/Psychiatric: alert, normal mood/affect, oriented x 3 (Bethel De La Rosa MD) Hospital Course 51 yo Male with hx of HTN, HLD, Tobacco use, GERD, FHx of Aortic Aneurysm presented to the ED with constant substernal Chest pain, diaphoresis with unremarkable EKG, negative serial troponins. Cardiac workup negative including cardiac cath that showed chronic obstructive changes not amenable to stenting and not the cause of his chests pain. Considering improvement with Protonix and other complaints including discomfort with eating most likely the pain is GI related. Also significant component is patients alcoholism and patient discharged with instruction to take multivitamins, folate, and thiamine. Also recommend outpatient EGD to further assess the nature of his pain and evaluate for pathologies including esophageal stricture, Schatzki's ring, esophageal ulcerations, PUD, and other etiologies. 1) Chest pain: Angina/ CAD vs GERD vs Peptic ulcer vs Gastritis - Resolved, no complaints of chest pain today - CATH today (02/23):Nonobstructive ISR in LAD (FFR negative) and severe disease in 1st and 2nd diagonals. Attempted wire placement through first diagonal but unable due to chronic nature - EKG unremarkable, NSR with no ST changes - Negative Serial troponins x3 - Continue Aspirin, ACEi, Metoprolol, Lipitor - Cardiology states chest pain most likely non-cardiac, follow up with Cardiology in 1 month 2) GERD - Due to negative cardiac catheterization and reflux symptoms associated with chest pain, GERD is most likely diagnosis - Continue Ranitidine - Continue Protonix PO --> As well as on discharge - if cardiac work up neg - should have outpatient GI evaluate including potential EGD 3) CAD s/p stent (2003), HLD - Continue ASA, Lipitor, Enalapril, Metoprolol 4) Recurrent Sinusitis - Continue Ceftin 5) Depression - Zoloft 6) DVT prophylaxis - Discontinued heparin drip prior to cath Total Time Spent: Greater than 30 minutes This includes examination of the patient, discharge planning, medication reconciliation, and communication with other providers. (Bethel De La Rosa MD) Discharge Instructions Please refer to the electronic Patient Visit Report (Discharge Instructions) for additional information. (Bethel De La Rosa MD) Additional Copies To Hunter Palacios M.D. Reviewed: Pt Seen/Exam by Me (Nevin Brice MD) History Resident Physician Supervision Note: I interviewed and examined the patient. Discussed with Dr. De La Rosa and agree with findings and plan as documented in the note. Any exceptions or clarifications are listed here: No further chest pain. Doing well. No events on telemetry since his cardiac catheterization. He is ready for discharge. Vitals and telemetry reviewed No acute distress, alert awake oriented 3 Regular rate and rhythm, no murmurs gallops or rubs, clear to auscultation bilaterally no wheezes crackles or rhonchi Positive bowel sounds soft nontender nondistended Extremities no edema, 2+ dorsalis pedis pulses Skin no rashes 51-year-old male here with atypical chest pain with a history of CAD. Troponins negative EKGs without ischemic changes. Cardiac cath with chronic obstructive disease not amenable to stenting and is not the cause of his chest pain. -Highly suspect GI cause and is now improved on Protonix -He is not anemic and I do not suspect he has GI bleeding, however he would benefit from an EGD as an outpatient to make sure there is no esophageal stricture, Schatzki's ring, esophageal ulcerations, peptic ulcer disease, or other cause for his symptoms. -Encouraged cessation of alcohol -Correction to above-he will not continue on Ceftin as he completed his 3 week course for sinusitis -Also correction to above-he will continue on his home program of Ramipril, not enalapril -stable for discharge Documented By: Nevin Brice (Nevin Brice MD)
== END 2017-02-24 12:43 | disposition home or self-care (01) ==
LOC: EDBD 08:20 → C.EDB 08:23 → C.MED 11:07 → ENRESERV 11:16 → C.2E 02-23 15:47
PROVIDERS: ADMIT Family Medicine; ATTEND Family Medicine
DX: R07.89 Other chest pain (principal); I25.10 Atherosclerotic heart disease of native coronary artery without angina pectoris; F17.201 Nicotine dependence, unspecified, in remission; I10 Essential (primary) hypertension; E78.5 Hyperlipidemia, unspecified; J32.9 Chronic sinusitis, unspecified; F32.9 Major depressive disorder, single episode, unspecified; K21.9 Gastro-esophageal reflux disease without esophagitis; F10.10 Alcohol abuse, uncomplicated; I25.2 Old myocardial infarction; Z98.61 Coronary angioplasty status; Z87.891 Personal history of nicotine dependence; Z79.82 Long term (current) use of aspirin; Z82.49 Family history of ischemic heart disease and other diseases of the circulatory system

== ENCOUNTER → 2017-05-20 | Outpatient (CLI) | payer OTHER ==
[~2017-05-20] MED LIST changes: +ASPI81TA28 PO; +ATOR-26 PO; +ATV/1 PO; -CARV3.12 PO; -CLOP1TAB15 PO; +FAMO20TA9 PO; +FLV1 PO; -LPT/40 PO; +METO-217 PO; -NRN/600 PO; +NRV/5 PO; +NTRGSL/4 UT; -OMEG10007 PO; +POLY335019 PO; -POLY335040 PO; +PRT40 PO; +RAMI2.5C PO; +SERT100T PO; +THM100 PO; -ZOLP5TAB PO
[2017-05-20 12:40] LABS: PROTHROMBIN TIME (PATIENT) 10.8 SECONDS (9.0-12.0)
[2017-05-20 12:44] LABS: BASO % 0.6 %; BASO ABS # 0.04 K/uL (0-0.2); COMPLETE YES; EOS % 6.1 %; HEMATOCRIT 44.8 % (42-52); IG% 0.5 %; LYMPH % 22.2 %; LYMPH ABS # 1.39 K/uL (1.2-3.4); MEAN CELL VOLUME 92.2 fL (80-100); MEAN CORPUSCULAR HEMOGLOBIN 31.3 pg (25-34); MEAN CORPUSCULAR HGB CONC 33.9 g/dl (32-36); MEAN PLATELET VOLUME 11.1 fL (7.4-10.4); MONO % 8.5 %; NEUT % 62.1 %; PLATELET COUNT 104 K/uL (130-400); RED BLOOD COUNT 4.86 M/uL (4.7-6.1); WHITE BLOOD COUNT 6.26 K/uL (4.8-10.8)
== END | disposition home or self-care (01) ==
LOC: C.LABMFLN 09:46
DX: Z01.818 Encounter for other preprocedural examination (principal)

== ENCOUNTER → 2017-06-05 | Outpatient (CLI) | payer OTHER ==
--- NOTE | 2017-06-05 09:20 | DIAGNOSTIC IMAGING REPORT ---
Study: Fusion CT sinuses HISTORY: Chronic sinusitis FINDINGS: Moderate mucosal thickening left central frontal sinuses. Near complete opacification ethmoid sinuses with hypertrophic change of the left inferior nasal turbinate. These findings create significant nasal occlusive change. There is soft tissue occlusion of the ostiomeatal units bilaterally. There is moderate mucosal thickening of the maxillary sinuses. There is no evidence for an orbital bony destructive process. There is minimal mucosal thickening of the sphenoid sinuses. The mastoid air cells are considered generally clear. IMPRESSION: 1. Considerable mucosal thickening of all major sinuses with near complete occlusion of the ethmoid sinuses. 2. Soft tissue occlusion ostiomeatal units bilaterally. 3. Hypertrophic change of the left nasal turbinates are considered most significant at the inferior nasal turbinate and creating rather significant nasal occlusive change. 4. Soft tissue occlusion ostiomeatal units. Electronically signed by: Zhao Yi M.D. 06/05/2017 9:19 AM Dictated Date/Time: 06/05/2017 9:16 AM
== END | disposition home or self-care (01) ==
LOC: C.CTS 09:01
DX: Z01.818 Encounter for other preprocedural examination (principal); J34.3 Hypertrophy of nasal turbinates

== ENCOUNTER → 2017-06-26 | Day surgery (SDC) | payer OTHER ==
[2017-06-16 15:38] VITALS: Ht 188 cm; Wt 113.6 kg
[~2017-06-26] VITALS: Ht 188 cm; Wt 113.6 kg
[~2017-06-26] MED LIST changes: +AMLO-110 PO; +ASPCH81X PO; -ASPI81TA28 PO; +ATROPINE SULFATE 0.1 MG/ML 5ML SYR IV PRN; -ATV/1 PO; +CEFAZOLIN 2000MG IV PUSH 10 ML IV SCH; +DEXAMETHASONE SOD INJ 4 MG/ML VIAL ONE; +EpINEphrine INJ 1MG/ML AMP 1 MG/ML AMP ONE; -FAMO20TA9 PO; +FENTANYL CITRATE INJ 50 MCG/1 ML 2 ML VIAL IV PRN; +FENTANYL CITRATE INJ 50 MCG/1 ML 2 ML VIAL ONE; -FLV1 PO; +GLYCOPYRROLATE INJ 0.2 MG/ML VIAL ONE; +HYDROCODONE/ACETAMIN 5/325MG TAB PO PRN; +LABETALOL HCL IV 5 MG/ML 20ML IV PRN; +LACTATED RINGER'S 1000ML 1,000 ML IV SCH; +LIDOCAINE 4% MPF SOAK 5 ML = 1 DOSE TOP ONE; +LIDOCAINE HCL 2% 2 ML VIAL (20MG/ML) ONE; +LIDOCAINE/EPINEPHRINE 1% INJ 50 ML VIAL ONE; +MIDAZOLAM HCL 1 MG/ML 2ML VIAL ONE; +NEOSTIGMINE METHYLSULFATE 5 MG/5 ML SYR ONE; -NRV/5 PO; -NTRGSL/4 UT; +ONDANSETRON INJ 2 MG/ML 2 ML VIAL IV PRN; +ONDANSETRON INJ 2 MG/ML 2 ML VIAL ONE; +OXYMETAZOLINE HCL 0.05% NA SPR 15 ML BTL PRN; +OXYMETAZOLINE HCL 0.05% NA SPR 15 ML BTL SCH; +PANT40TA PO; -POLY335019 PO; +PROPOFOL IV EMULSION 10 MG/ML 20 ML VIAL IV ONE; -PRT40 PO; +SERT-234 PO; -SERT100T PO; -THM100 PO; +TRIAMCINOLONE ACET 40 MG/ML VIAL ONE
--- NOTE | 2017-06-26 07:23 | History and Physical: Surg Cnt ---
History & Physical Date Jun 26, 2017. Chief Complaint CHRONIC SINUSITIS, SINONASAL POLYPOSIS, SEPTAL DEVIATION, BILATERAL INFERIOR TURBINATE HYPERTROPHY History of Present Illness The patient is a 51 year old male with complaints of CHRONIC SINUSITIS, SINONASAL POLYPOSIS, SEPTAL DEVIATION, BILATERAL INFERIOR TURBINATE HYPERTROPHY WITH CONTINUED SYMPTOMS DESPITE MAXIMAL MEDICAL THERAPY. Past Medical/Surgical History PMH: ABOVE, CAD, DEPRESSION, GERD, DYSLIPIDEMIA, GERD, HTN, H/O SC PSH: S/P ANAL FISSURECTOMY, BACK SURGERY, CORONARY STENT Additional History Hepatic Disease: No Endocrine Disorder: No Kidney Disease: No Hypertension: No Heart Disease: No Bleeding Tendencies: No Infectious Diseases: No Allergies Coded Allergies: No Known Allergies (Unverified , 06/26/17) Home Medications Scheduled Amlodipine (Norvasc), 5 MG PO QAM Aspirin (Aspirin Chewable), 81 MG PO QAM Atorvastatin (Lipitor), 80 MG PO QAM Metoprolol Succinate (Toprol Xl), 50 MG PO QAM Pantoprazole (Protonix), 40 MG PO QAM Ramipril (Ramipril), 1 CAP PO QAM Sertraline (Zoloft), 2 TAB PO QAM Physical Examination Skin: warm/dry, no rash Eyes: normal inspection, EOMI, sclerae normal ENT: + pertinent finding (HYPONASAL VOICE, MILD TO MODERATE CONGESTION, R DNS, L>R ITH, L>R NASAL POLYPS) Head: normocephalic, atraumatic Neck: supple, no adenopathy, trachea midline Respiratory/Chest: lungs clear, normal breath sounds, no respiratory distress Cardiovascular: regular rate, rhythm, no edema, no murmur Neurologic/Psych: no motor/sensory deficits, alert, normal reflexes, oriented x 3 Diagnosis CHRONIC SINUSITIS, SINONASAL POLYPOSIS, SEPTAL DEVIATION, BILATERAL INFERIOR TURBINATE HYPERTROPHY Plan of Treatment IMAGE-GUIDED B FESS AND INFERIOR TURBINATE REDUCTION, SEPTOPLASTY
--- NOTE | 2017-06-26 09:46 | [facility] Operative Report ---
Operative Report Operative Date Jun 26, 2017. Pre-Operative Diagnosis Chronic Sinusitis, Sinonasal Polyposis, Septal Deviation, Bilateral Inferior Turbinate Hypertrophy Post-Operative Diagnosis Same Procedure(s) Performed Image Guided Bilateral Endoscopic Sinus Surgery With Septoplasty And Bilateral Inferior Turbinate Reduction Surgeon Dr. Spring Gum Sprayer Surgeon(s) None Estimated Blood Loss 50ML Findings SEVERE L>R SINONASAL POLYPOSIS INVOLVING ALL SINUSES; R>L DNS; L>R ITH Specimens A. Left Nasal Polyp I attest to the content of the Intraoperative Record and any orders documented therein. Any exceptions are noted below.
--- NOTE | 2017-06-26 09:49 | Discharge Instructions ---
Discharge Instructions Date of Service Jun 26, 2017. Admission Reason for Admission: Chronic Sinusitis, Nasal Polyps, Septal Deviation, Discharge Discharge Diagnosis / Problem: SAME Discharge Goals Goal(s): Therapeutic intervention Activity Recommendations Activity Limitations: as noted below LIGHT ACTIVITY AND NO NOSE BLOWING FOR 2 WEEKS; NO DRIVING WHILE ON NORCO . Current Hospital Diet Patient's current hospital diet: Discharge Diet Recommended Diet: Regular Diet Procedures Procedures Performed: Image Guided Bilateral Endoscopic Sinus Surgery With Septoplasty And Bilateral Inferior Turbinate Reduction Pending Studies Studies pending at discharge: no Medical Emergencies . Who to Call and When: Medical Emergencies: If at any time you feel your situation is an emergency, please call 911 immediately. . Non-Emergent Contact Non-Emergency issues call your: Surgeon . . "Provider Documentation" section prepared by Maldonado Spring. . VTE Core Measure Inpt VTE Proph given/why not?: SCD's
--- NOTE | 2017-06-26 10:44 | OPERATIVE REPORT ---
DATE OF OPERATION: 06/26/2017 PREOPERATIVE DIAGNOSES: 1. Chronic polypoid rhinosinusitis. 2. Right greater than left septal deviation. 3. Bilateral inferior turbinate hypertrophy. POSTOPERATIVE DIAGNOSES: 1. Chronic polypoid rhinosinusitis. 2. Right greater than left septal deviation. 3. Bilateral inferior turbinate hypertrophy. PROCEDURES: Handseeing Information fusion image guided bilateral endoscopic sinus surgery consisting of: 1. Bilateral maxillary antrostomies. 2. Bilateral complete ethmoidectomies. 3. Bilateral sphenoidotomies. 4. Bilateral balloon sinuplasty assisted frontal sinusotomies. 5. Septoplasty. 6. Bilateral inferior turbinate outfracture and turbinoplasties. SURGEON: Dr. Maldonado Spring. ANESTHESIA: General endotracheal. ESTIMATED BLOOD LOSS: 50 mL. FINDINGS: 1. Severe left greater than right sinonasal polyposis. 2. Right greater than left septal deviation. 3. Left greater than right inferior turbinate hypertrophy. SPECIMENS: Left nasal polyp for permanent pathological assessment. COMPLICATIONS: None. INDICATIONS FOR THE PROCEDURE: The patient is a 51-year-old male with the above-mentioned history, which has been refractory to maximal medical therapy including systemic antibiotics, nasal steroids, and systemic antibiotics and steroids as well as topical steroids. The patient's posttreatment fusion CT scan of the sinuses showed pansinusitis with most of the sinusitis being in the ethmoid sinuses. He also had a large left nasal polyp emanating into the left nasal cavity. He has right greater than left septal deviation and left greater than right inferior turbinate hypertrophy. He presents for the above-mentioned procedures on an outpatient elective basis. DESCRIPTION OF PROCEDURE: After informed consent had been obtained from the patient, the patient was wheeled to the operating room and placed on the operating table in the supine position. Monitors were placed. After induction of general endotracheal anesthesia, the patient was prepped in the usual fashion for image guided endoscopic sinus surgery. The Handseeing Information fusion headset was placed over the forehead and was registered, calibrated and verified and used for the entire case, but especially the frontal sinus and sphenoid sinus portions of the case. Lidocaine with epinephrine pledgets were placed in the bilateral nasal cavities and pressure applied. The left side pledgets were first removed. There was a large nasal polyp filling the majority of the nasal cavity. This was injected with 1% lidocaine with 1:100,000 epinephrine. After allowing adequate time for vasoconstriction, a straight Yared-Cut forceps was used to remove the majority of the left nasal polyp, which was sent off for permanent pathological assessment. A freer elevator was then used to medialize the middle turbinate and the middle turbinate, lateral nasal wall, and polyposis emanating from the ethmoid sinus were injected with 1% lidocaine with 1:100,000 epinephrine. A lidocaine and epinephrine pledget was then placed in the left middle meatus. The right side was then addressed in a similar fashion; however, the nasal polyp on this side was not as large and did not extend into the nasal cavity. The left-sided pledget was removed. An uncinatectomy was performed using a freer elevator, straight Yared-Cut forceps, backbiting forceps, and powered instrumentation. The natural ostium of the maxillary sinus was identified and this was enlarged anteriorly, inferiorly, and posteriorly using backbiting forceps and powered instrumentation. A complete ethmoidectomy was then performed using powered instrumentation. A transnasal approach to the sphenoid sinus was then undertaken and there were polyps emanating from the sphenoethmoidal recess, which were taken down using powered instrumentation. The natural ostium of the sphenoid sinus was identified and this was enlarged medially and inferiorly using powered instrumentation. Using a frontal sinus suction, the left frontal sinus was cannulated and this was visualized on the imaged guidance system. The suction was removed. A #6 frontal sinus balloon was then placed and inflated to 12 atmospheres of pressure at 2 different locations to dilate the frontal recess tract. Polypoid tissue was removed from the frontal recess using powered instrumentation. The pledget was then placed into the left ethmoid sinus. The right side was then addressed in a similar fashion with similar intraoperative findings, although the sinonasal polyposis was not as extensive on this side. 1% lidocaine with 1:100,000 epinephrine was then used to inject the nasal septum bilaterally, thereby performing hydrodissection of the mucoperichondrial and mucoperiosteal flaps. Lidocaine and epinephrine pledgets were placed in the bilateral nasal cavities and pressure applied. The pledgets were then removed. A #15 scalpel was used to make a left Master incision, through which the left-sided mucoperichondrial and mucoperiosteal flap was elevated. A #15 scalpel was then used to incise the quadrangular cartilage with care to preserve a 1.5-cm dorsal and caudal strut and the right-sided mucoperichondrial and mucoperiosteal flap was elevated through this cartilaginous incision. The patient had deviated nasal septum to the left hand side anteriorly due to quadrangular cartilage and this was removed using a Brandt swivel knife. The patient had more extensive septal deviation to the right hand side due to a large septal spur. This was removed using a V-shaped osteotome, mallet, and Gilbert forceps. The septal cavity was then suctioned. The left Vamo incision was closed with several simple interrupted 4-0 chromic sutures. A 4-0 plain gut suture on a Mynor needle was then used to perform a quilting stitch of the mucoperichondrial and mucoperiosteal flaps bilaterally to help prevent septal hematoma. A Crisostomo elevator was then used to infracture and subsequently outfracture the inferior turbinates bilaterally. The inferior turbinates were injected with 1% lidocaine with 1:100,000 epinephrine. A 2.0-mm turbinate blade using powered instrumentation was then used to perform bilateral inferior turbinoplasties in a submucosal fashion. The sinonasal cavities were then suctioned. Stammberger nasal dressing mixed with 1 mL of Kenalog 40 mg per 1 mL was then instilled into the ethmoid cavities bilaterally. An orogastric tube was placed and the stomach was suctioned free of air and stomach contents. This marked the end of the case. The patient tolerated the procedure well. There were no apparent complications. The patient was extubated and transferred to recovery room in stable condition. I attest to the content of the Intraoperative Record and any orders documented therein. Any exception s are noted below.
[2017-06-26 11:00] VITALS: BP 121/77; PULSE 51; O2SAT 96
--- NOTE | 2017-06-26 11:04 | Anesthesia Progress Nt - [facility] ---
Anesthesia Post Op Note Date & Time Jun 26, 2017 at 11:03 Vital Signs Vital Signs Past 12 Hours Date Time Temp Pulse Resp B/P (MAP) Pulse Ox O2 Delivery O2 Flow Rate FiO2 06/26/17 10:27 36.4 51 16 118/78 (91) 95 Room Air 06/26/17 10:20 36.4 54 14 122/75 94 Room Air 06/26/17 10:20 122/75 06/26/17 10:18 58 16 94 06/26/17 10:18 58 16 06/26/17 10:15 116/73 06/26/17 10:13 58 15 93 06/26/17 10:13 57 15 06/26/17 10:11 118/57 06/26/17 10:08 57 19 06/26/17 10:08 56 19 98 06/26/17 10:05 138/77 06/26/17 10:03 54 8 06/26/17 10:03 54 8 96 06/26/17 10:01 110/66 06/26/17 09:58 58 9 06/26/17 09:58 57 9 99 06/26/17 09:55 138/82 06/26/17 09:53 66 15 06/26/17 09:53 36.7 70 12 133/83 98 Mask 6 06/26/17 09:53 66 15 133/83 97 06/26/17 07:06 36.4 69 16 129/87 (101) 95 Room Air Notes Mental Status: alert / awake / arousable, participated in evaluation Pt Amnestic to Procedure: Yes Nausea / Vomiting: adequately controlled Pain: adequately controlled Airway Patency, RR, SpO2: stable & adequate BP & HR: stable & adequate Hydration State: stable & adequate Anesthetic Complications: no major complications apparent
== END | disposition home or self-care (01) ==
LOC: X.SURG 06:47
DX: J32.9 Chronic sinusitis, unspecified (principal); J33.9 Nasal polyp, unspecified; J34.2 Deviated nasal septum; J34.3 Hypertrophy of nasal turbinates; I25.10 Atherosclerotic heart disease of native coronary artery without angina pectoris; F41.9 Anxiety disorder, unspecified; K21.9 Gastro-esophageal reflux disease without esophagitis; E78.5 Hyperlipidemia, unspecified; I10 Essential (primary) hypertension; I25.2 Old myocardial infarction; Z95.818 Presence of other cardiac implants and grafts; M19.90 Unspecified osteoarthritis, unspecified site; Z79.82 Long term (current) use of aspirin; E66.9 Obesity, unspecified; Z87.891 Personal history of nicotine dependence

== ENCOUNTER → 2017-08-18 | Outpatient (CLI) | payer OTHER ==
[~2017-08-18] MED LIST changes: -ATROPINE SULFATE 0.1 MG/ML 5ML SYR IV PRN; -CEFAZOLIN 2000MG IV PUSH 10 ML IV SCH; -DEXAMETHASONE SOD INJ 4 MG/ML VIAL ONE; -EpINEphrine INJ 1MG/ML AMP 1 MG/ML AMP ONE; -FENTANYL CITRATE INJ 50 MCG/1 ML 2 ML VIAL IV PRN; -FENTANYL CITRATE INJ 50 MCG/1 ML 2 ML VIAL ONE; -GLYCOPYRROLATE INJ 0.2 MG/ML VIAL ONE; -HYDROCODONE/ACETAMIN 5/325MG TAB PO PRN; -LABETALOL HCL IV 5 MG/ML 20ML IV PRN; -LACTATED RINGER'S 1000ML 1,000 ML IV SCH; -LIDOCAINE 4% MPF SOAK 5 ML = 1 DOSE TOP ONE; -LIDOCAINE HCL 2% 2 ML VIAL (20MG/ML) ONE; -LIDOCAINE/EPINEPHRINE 1% INJ 50 ML VIAL ONE; -MIDAZOLAM HCL 1 MG/ML 2ML VIAL ONE; -NEOSTIGMINE METHYLSULFATE 5 MG/5 ML SYR ONE; -ONDANSETRON INJ 2 MG/ML 2 ML VIAL IV PRN; -ONDANSETRON INJ 2 MG/ML 2 ML VIAL ONE; -OXYMETAZOLINE HCL 0.05% NA SPR 15 ML BTL PRN; -OXYMETAZOLINE HCL 0.05% NA SPR 15 ML BTL SCH; -PROPOFOL IV EMULSION 10 MG/ML 20 ML VIAL IV ONE; -TRIAMCINOLONE ACET 40 MG/ML VIAL ONE
[2017-08-18 13:19] LABS: HEMOGLOBIN A1C 6.5 % (4.5-5.6)
[2017-08-18 14:01] LABS: ALBUMIN 3.7 gm/dl (3.4-5.0); ALT/SGPT 49 U/L (12-78); AST/SGOT 25 U/L (15-37); BLOOD UREA NITROGEN 17 mg/dl (7-18); CALCIUM 8.9 mg/dl (8.5-10.1); CARBON DIOXIDE 26 mmol/L (21-32); CREATININE 1.14 mg/dl (0.60-1.40); GLUCOSE 141 mg/dl (70-99); POTASSIUM 4.5 mmol/L (3.5-5.1); SODIUM 139 mmol/L (136-145)
[2017-08-18 14:03] LABS: ALKALINE PHOSPHATASE 116 U/L (45-117); CHOLESTEROL 184 mg/dl (0-200); LDL CHOLESTEROL CALCULATED 88 mg/dl; TOTAL PROTEIN 7.4 gm/dl (6.4-8.2)
== END | disposition home or self-care (01) ==
LOC: C.LABMFLN 07:03
PROVIDERS: ATTEND Family Medicine
DX: E78.5 Hyperlipidemia, unspecified (principal); I10 Essential (primary) hypertension; I25.10 Atherosclerotic heart disease of native coronary artery without angina pectoris; R73.03 Prediabetes

== ENCOUNTER → 2017-10-05 | Outpatient (CLI) | payer OTHER | END | disposition home or self-care (01) | LOC: C.LABMFLN 07:24 | PROVIDERS: ATTEND Family Medicine | DX: R73.03 Prediabetes (principal); Z12.5 Encounter for screening for malignant neoplasm of prostate ==